=== PATIENT | female | born 1950 | race African-American/Black ===

== ENCOUNTER 2018-08-14 16:35 | Inpatient (IN) | payer OTHER ==
[2018-08-14 18:42] VITALS: BMI 23.0
--- NOTE | 2018-08-14 21:13 | HP ---
CIWA Score Nausea/Vomitin Muscle Tremors: 4-Moderate,w/Arms Extend Anxiety: 3 Agitation: 4-Moderately Restless Paroxysmal Sweats: 2 (Inreased facial moisture) Orientation: 0-Oriented Tacttile Disturbances: 0-None Auditory Disturbances: 0-None Visual Disturbances: 0-None Headache: 2-Mild CIWA-Ar Total Score: 18 - Admission Criteria OASAS Guidelines: Admission for Medically Managed Detox: Requires at least one of the followin. CIWA greater than 12 2. Seizures within the past 24 hours 3. Delirium tremens within the past 24 hours 4. Hallucinations within the past 24 hours 5. Acute intervention needed for co occurring medical disorder 6. Acute intervention needed for co occurring psychiatric disorder 7. Severe withdrawal that cannot be handled at a lower level of care (continued vomiting, continued diarrhea, abnormal vital signs) requiring intravenous medication and/or fluids 8. Patient presents the following: CIWA greater than 12 Admission Criteria Met: Admission criteria met Admission ROS S - [facility] Chief Complaint: I am having withdrawal symptoms. Allergies/Adverse Reactions: Allergies Allergy/AdvReac Type Severity Reaction Status Date / Time No Known Drug Allergies Allergy Verified 08/14/18 20:37 History of Present Illness: I'm here for detox. "I drink too much - I'm an alcoholic" Was in [facility] ER on 08/13 requesting detox, was kept overnight, and transferred to [facility]. Alcohol use began at age 15. Nicotine use began at age 15. Denies other drugs. Hx: blackouts - last 1 week ago. Denies seizures. Hx: 20 years sobriety w/o alcohol and cigarette use - which ended 3 years ago. PMHx: HTN, states takes Lasix PRN for swelling of legs. (L) THR, Liver and pancreas problems - on use, (L) knee pain - uses cane COPD - no recent exacerbation - uses albuterol ? on XARELTO - To call pharmacy for verification. (Unsure why on this medication , which she states was started a couple of days ago. MHHx: Occ depression - denies thoughts of harming self or others. No MH meds. Search Terms: Suzanne Atkins, 1950 Search Date: 08/14/2018 09:12:26 PM The Drug Utilization Report below displays all of the controlled substance prescriptions, if any, that your patient has filled in the last twelve months. The information displayed on this report is compiled from pharmacy submissions to the Department, and accurately reflects the information as submitted by the pharmacies. This report was requested by: Prabha Fonseca | Reference #: [id number] There are no results for the search terms that you entered. Exam Limitations: No Limitations - Ebola screening Have you traveled outside of the country in the last 21 days: No Have you had contact with anyone from an Ebola affected area: No Have you been sick,other than usual withdrawal symptoms: No Do you have a fever: No - Review of Systems Constitutional: Changes in sleep (Difficulty staying asleep) EENT: reports: Blurred Vision, Dental Problems (Missing teeth. Denies pain. Chews and swallows ok.) Respiratory: reports: No Symptoms reported (Past COPD - no recent exacerbation) Cardiac: reports: No Symptoms Reported GI: reports: Diarrhea, Nausea, Indigestion (Acid reflux - takes maalox or TUMS) : reports: No Symptoms Reported Musculoskeletal: reports: Joint Pain ((L) knee "4" - achy increases w/ walking; improves w/ rest) Integumentary: reports: No Symptoms Reported Neuro: reports: Headache, Tremors Endocrine: reports: Excessive Sweating, Increased Thirst (Especially in am) Hematology: reports: No Symptoms Reported Psychiatric: reports: Judgement Intact, Orientated x3, Anxious, Depressed ( Denies thoughts of harming self or others) Patient History - Patient Medical History Hx Asthma: No Hx Chronic Obstructive Pulmonary Disease (COPD): No Hx Cardiac Disorders: No Hx Hypertension: Yes (BP: 187/91) Hx Seizures: No Hx Diabetes: No Hx Gastrointestinal Disorders: No Hx Genitourinary Disorders: No Hx Sexually Transmitted Disorders: No Hx Renal Disease (ESRD): No Hx Depression: No Hx Suicide Attempt: No Hx Schizophrenia: No - Patient Surgical History Past Surgical History: Yes Hx Neurologic Surgery: No Hx Cataract Extraction: No Hx Cardiac Surgery: No Hx Lung Surgery: No Hx Breast Surgery: No Hx Breast Biopsy: No Hx Abdominal Surgery: No Hx Appendectomy: No Hx Cholecystectomy: No Hx Genitourinary Surgery: No Hx Section: No Hx Orthopedic Surgery: Yes (L Hip Replacement 2012) - PPD History Previous Implant?: Yes Documented Results: Negative w/o proof Implanted On Prior R Admission?: No PPD to be Administered?: Yes - Reproductive History Patient : No - Smoking Cessation Smoking history: Current every day smoker Have you smoked in the past 12 months: Yes Aproximately how many cigarettes per day: 10 Hx Chewing Tobacco Use: No Initiated information on smoking cessation: Yes 'Breaking Loose' booklet given: 08/14/18 - Substance & Tx. History Hx Alcohol Use: Yes Hx Substance Use: Yes Substance Use Type: Alcohol Hx Substance Use Treatment: Yes (detox, rehabs ) - Substances Abused Alcohol Route: Oral Frequency: Daily Amount used: Vodka- 1 pint Age of first use: 15 Date of Last Use: 08/13/18 Admission Physical Exam BHS - Vital Signs Vital Signs: Vital Signs - 24 hr 08/14/18 18:41 Temperature 98.9 F Pulse Rate 79 Respiratory 18 Rate Blood Pressure 187/91 H - Physical General Appearance: Yes: Nourished, Mild Distress, Tremorous, Sweating, Anxious HEENTM: Yes: EOMI, Hearing grossly Normal, Normocephalic, MAHAD, Pharynx Normal Respiratory: Yes: Chest Non-Tender, Lungs Clear, Normal Breath Sounds, No Respiratory Distress Neck: Yes: No masses,lesions,Nodules, Supple Breast: Yes: Breast Exam Deferred Cardiology: Yes: Regular Rhythm, Regular Rate, S1, S2, Murmur Abdominal: Yes: Soft, Increased Bowel Sounds, Tenderness (LUQ tenderness upon deep palpation. NO guarding. No rebound.) Genitourinary: Yes: Within Normal Limits Back: Yes: Normal Inspection Musculoskeletal: Yes: full range of Motion, Gait Steady (w/ use of cane), Other (Crepitis both knees w/o increased warmth, swelling, tenderness.) Extremities: Yes: Normal Capillary Refill, Normal Range of Motion, Tremors ( Increased tremors of hands upon extension) Neurological: Yes: simplex operator II-XII NML intact, Fully Oriented, Alert, Motor Strength 5/5, Normal Mood/Affect Integumentary: Yes: Normal Color, Dry, Warm Lymphatic: Yes: Within Normal Limits - Diagnostic (1) Alcohol dependence with uncomplicated withdrawal Current Visit: Yes Status: Acute (2) Nicotine dependence, uncomplicated Current Visit: Yes Status: Chronic Qualifiers: Nicotine product type: cigarettes Qualified Code(s): F17.210 - Nicotine dependence, cigarettes, uncomplicated (3) Essential (primary) hypertension Current Visit: Yes Status: Chronic (4) History of COPD Current Visit: Yes Status: Chronic (5) History of total left hip replacement Current Visit: Yes Status: Chronic (6) Knee pain Current Visit: Yes Status: Chronic Qualifiers: Chronicity: chronic Laterality: left Qualified Code(s): M25.562 - Pain in left knee; G89.29 - Other chronic pain Cleared for Admission S - Detox or Rehab [facility] Level of Care: Medically Managed Detox Regimen/Protocol: Librium [facility] Breath Alcohol Content Breath Alcohol Content: 0 Urine Pregancy Test - Result Urine Test Results: Negative - NO Line Present Urine Drug Screen - Results Drug Screen Negative: Yes Inpatient Rehab Admission - Rehab Decision to Admit Inpatient rehab admission?: No
[2018-08-14] MEDS ORDERED: MELATONIN 5 MG TABLETS PO PRN (21:55)
[2018-08-14] MEDS ORDERED: ACETAMINOPHEN 325 MG TABLET (FP) PO PRN (21:55)
[2018-08-14] MEDS ORDERED: MAG HYDROX/AL HYDROX/SIMETH 30 ML UNIT-DOSE CUP PO PRN (21:55)
[2018-08-14] MEDS ORDERED: chlordiazePOXIDE HCL 25 MG CAPSULE PO ONE (21:55)
[2018-08-14] MEDS ORDERED: chlordiazePOXIDE HCL 25 MG CAPSULE PO PRN (21:55)
[2018-08-14] MEDS ORDERED: guaiFENesin 200 MG/10 ML 10 ML UNIT-DOSE CUPS PO PRN (21:55)
[2018-08-14] MEDS ORDERED: MAGNESIUM CITRATE 300 ML BOTTLE PO PRN (21:55)
[2018-08-14] MEDS ORDERED: NICOTINE POLACRILEX 2 MG GUM BUC PRN (21:55)
[2018-08-14] MEDS ORDERED: MENTHOL/PHENOL 1 EACH UD MM PRN (21:55)
[2018-08-14] MEDS ORDERED: MAGNESIUM HYDROX 2400MG/30ML ORAL SUSPENSION 30 ML CUP PO PRN (21:55)
[2018-08-14] MEDS ORDERED: LOPERAMIDE HCL 2 MG CAPSULE PO PRN (22:00)
[2018-08-14] MEDS ORDERED: ALBUTEROL SO4 0.083% IH SOL 2.5 MG/3 ML VIAL.NEB. NEB PRN (22:02)
[2018-08-14] MEDS ORDERED: FUROSEMIDE 20 MG TABLET (FP) PO SCH (22:15)
[2018-08-14] MEDS ORDERED: cloNIDine HCL 0.1 MG TABLET PO ONE (23:03)
[2018-08-14] MEDS: THIAMINE HCL 100 MG TABLET (FP) PO SCH (23:10)
[2018-08-14] MEDS: chlordiazePOXIDE HCL 25 MG CAPSULE PO SCH (23:10)
[2018-08-14] MEDS: ACETAMINOPHEN 325 MG TABLET (FP) PO PRN (23:10)
[2018-08-15 01:50] LABS: URINE APPEARANCE CLEAR; URINE BILIRUBIN NEGATIVE (<2.0 mg/dL); URINE COLOR YELLOW; URINE GLUCOSE (UA) NEGATIVE (NEGATIVE); URINE KETONE NEGATIVE (NEGATIVE); URINE LEUK ESTERASE NEGATIVE (NEGATIVE); URINE NITRITE NEGATIVE (NEGATIVE); URINE PROTEIN 2+ (NEGATIVE); URINE UROBILINOGEN 4.0 E.U/dl mg/dL (0.2-1.0)
[2018-08-15 02:08] LABS: EPI CELLS RARE /HPF (FEW); URINE MUCUS RARE; YEAST FEW
[2018-08-15] MEDS: chlordiazePOXIDE HCL 25 MG CAPSULE PO SCH ×5 (05:02→23:39)
[2018-08-15] MEDS: BISMUTH SUBSALICYLATE 524 MG/30 ML UD PO PRN (05:23)
[2018-08-15] MEDS ORDERED: LIPASE/PROTEASE/AMYLASE 36,000 UNIT CAPSULE PO SCH (08:00)
[2018-08-15] MEDS: NICOTINE 14 MG/24 HOURS TOPICAL PATCH TD SCH (10:12)
[2018-08-15] MEDS: PRENATAL VITAMINS W/ FOLIC ACID TABLET (FP) PO SCH (10:12)
--- NOTE | 2018-08-15 10:45 | EKG ---
Test Reason : Blood Pressure : / mmHG Vent. Rate : 071 BPM Atrial Rate : 071 BPM P-R Int : 160 ms QRS Dur : 090 ms QT Int : 434 ms P-R-T Axes : 074 072 077 degrees QTc Int : 471 ms NORMAL SINUS RHYTHM NORMAL ECG NO PREVIOUS ECGS AVAILABLE Confirmed by Shawn Yanez MD ([id number]) on 08/15/2018 10:44:43 AM Referred By: GIULIA DUMONT Confirmed By:Shawn Yanez MD
[2018-08-15 11:28] LABS: HEMATOCRIT 30.9 % (32.4-45.2); HEMOGLOBIN 10.5 GM/dL (10.7-15.3); MCHC 34.1 g/dl (32.0-36.0); MEAN CELL VOLUME 90.9 fl (80-96); MEAN PLT VOLUME 7.1 fl (7.5-11.1); PLATELET COUNT 133 K/MM3 (134-434); RBC 3.39 M/mm3 (3.60-5.2); RDW 18.2 % (11.6-15.6); WHITE BLOOD COUNT 4.1 K/mm3 (4.0-10.0)
[2018-08-15 11:35] LABS: ALBUMIN 3.5 g/dl (3.4-5.0); ALK PHOS 119 U/L (45-117); ANION GAP 7 MMOL/L (8-16); BILIRUBIN,TOTAL 0.4 mg/dL (0.2-1); BLOOD UREA NITROGEN 10 mg/dL (7-18); CALCIUM 8.6 mg/dL (8.5-10.1); CHLORIDE 102 mmol/L (98-107); CO2 31 mmol/L (21-32); CREATININE 0.8 mg/dL (0.55-1.3); GLUCOSE,RANDOM 119 mg/dL (74-106); SGOT/AST 44 U/L (15-37); SGPT/ALT 26 U/L (13-61); SODIUM 139 mmol/L (136-145); TOT PROT 6.9 g/dl (6.4-8.2)
[2018-08-15] MEDS ORDERED: ONDANSETRON *ODT* 4 MG TABLET SL ONE (12:29)
--- NOTE | 2018-08-15 12:30 | PN ---
S CIWA - CIWA Score Nausea/Vomitin-Mild Nausea/No Vomiting Muscle Tremors: 3 Anxiety: 1-Mildly Anxious Agitation: 3 Paroxysmal Sweats: 1-Minimal Palms Moist Orientation: 2-Disoriented Date<2 days Tacttile Disturbances: 0-None Auditory Disturbances: 0-None Visual Disturbances: 0-None Headache: 2-Mild CIWA-Ar Total Score: 13 BHS Progress Note (SOAP) Subjective: nausea tremor sweating zofran 4 mg sl x 1 Objective: 08/15/18 12:31 Vital Signs Temperature 97.8 F 08/15/18 09:29 Pulse Rate 68 08/15/18 09:29 Respiratory Rate 18 08/15/18 09:29 Blood Pressure 148/81 08/15/18 09:29 O2 Sat by Pulse Oximetry (%) Laboratory Last Values WBC 4.1 K/mm3 (4.0-10.0) 08/15/18 07:30 RBC 3.39 M/mm3 (3.60-5.2) L 08/15/18 07:30 Hgb 10.5 GM/dL (10.7-15.3) L 08/15/18 07:30 Hct 30.9 % (32.4-45.2) L 08/15/18 07:30 MCV 90.9 fl (80-96) 08/15/18 07:30 MCH 31.0 pg (25.7-33.7) 08/15/18 07:30 MCHC 34.1 g/dl (32.0-36.0) 08/15/18 07:30 RDW 18.2 % (11.6-15.6) H 08/15/18 07:30 Plt Count 133 K/MM3 (134-434) L 08/15/18 07:30 MPV 7.1 fl (7.5-11.1) L 08/15/18 07:30 Sodium 139 mmol/L (136-145) 08/15/18 07:30 Potassium 3.0 mmol/L (3.5-5.1) L 08/15/18 07:30 Chloride 102 mmol/L (98-107) 08/15/18 07:30 Carbon Dioxide 31 mmol/L (21-32) 08/15/18 07:30 Anion Gap 7 MMOL/L (8-16) L 08/15/18 07:30 BUN 10 mg/dL (7-18) 08/15/18 07:30 Creatinine 0.8 mg/dL (0.55-1.3) 08/15/18 07:30 Creat Clearance w eGFR 71.99 (>60) 08/15/18 07:30 Random Glucose 119 mg/dL (74-106) H 08/15/18 07:30 Calcium 8.6 mg/dL (8.5-10.1) 08/15/18 07:30 Total Bilirubin 0.4 mg/dL (0.2-1) 08/15/18 07:30 AST 44 U/L (15-37) H 08/15/18 07:30 ALT 26 U/L (13-61) 08/15/18 07:30 Alkaline Phosphatase 119 U/L (45-117) H 08/15/18 07:30 Total Protein 6.9 g/dl (6.4-8.2) 08/15/18 07:30 Albumin 3.5 g/dl (3.4-5.0) 08/15/18 07:30 Urine Color Yellow 08/14/18 23:10 Urine Appearance Clear 08/14/18 23:10 Urine pH 6.0 (5.0-8.0) 08/14/18 23:10 Ur Specific [place] 1.020 (1.010-1.035) 08/14/18 23:10 Urine Protein 2+ (NEGATIVE) H 08/14/18 23:10 Urine Glucose (UA) Negative (NEGATIVE) 08/14/18 23:10 Urine Ketones Negative (NEGATIVE) 08/14/18 23:10 Urine Blood Negative (NEGATIVE) 08/14/18 23:10 Urine Nitrite Negative (NEGATIVE) 08/14/18 23:10 Urine Bilirubin Negative (<2.0 mg/dL) 08/14/18 23:10 Urine Urobilinogen 4.0 e.u/dl mg/dL (0.2-1.0) H 08/14/18 23:10 Ur Leukocyte Esterase Negative (NEGATIVE) 08/14/18 23:10 Urine WBC (Auto) 2 /hpf (3-5) 08/14/18 23:10 Urine RBC (Auto) 2 /hpf (0-3) 08/14/18 23:10 Ur Epithelial Cells Rare /HPF (FEW) 08/14/18 23:10 Urine Mucus Rare 08/14/18 23:10 Urine Yeast Few 08/14/18 23:10 lab noted taking lasix 08/15/18 12:34 low K+ Assessment: 08/15/18 12:34 alcohol withdrawal sx 08/15/18 12:34 hypokalemia Plan: continue detox K+ supplement
[2018-08-15] MEDS ORDERED: ALBUTEROL SO4 8 GM HFA INHALER IH PRN (12:37)
[2018-08-15] MEDS: FUROSEMIDE 20 MG TABLET (FP) PO SCH (12:43)
[2018-08-15] MEDS: RANITIDINE HCL 150 MG TABLET (FP) PO SCH ×2 (12:43→23:08)
[2018-08-15] MEDS ORDERED: RIVAROXABAN 20 MG TABLET PO SCH ×2 (12:45)
[2018-08-15] MEDS ORDERED: GABAPENTIN 100 MG CAPSULE (FP) PO SCH (12:45)
[2018-08-15] MEDS: POTASSIUM CHLORIDE ORAL LIQUID 20 MEQ/15 ML PO SCH ×2 (14:09→18:34)
[2018-08-15] MEDS: GABAPENTIN 100 MG CAPSULE (FP) PO SCH ×3 (14:09→23:43)
[2018-08-15] MEDS ORDERED: TRIMETHOBENZAMIDE HCL 200MG/2ML INJ IM ONE ×2 (17:02→21:47)
--- NOTE | 2018-08-15 17:03 | PN ---
[facility] Progress Note Note: Vital Signs Temperature 98.6 F 08/15/18 13:48 Pulse Rate 66 08/15/18 13:48 Respiratory Rate 18 08/15/18 13:48 Blood Pressure 159/80 08/15/18 13:48 O2 Sat by Pulse Oximetry (%) nausea and vomiting with no relief with zofran one time dose of tigan IM fluids as tolerated continue to monitor
[2018-08-15] MEDS: RIVAROXABAN 20 MG TABLET PO SCH (18:31)
[2018-08-15] MEDS: LIPASE/PROTEASE/AMYLASE 36,000 UNIT CAPSULE PO SCH (18:33)
[2018-08-15] MEDS: ACETAMINOPHEN 325 MG TABLET (FP) PO PRN ×2 (18:40→21:15)
[2018-08-15] MEDS ORDERED: hydrOXYzine PAMOATE 25 MG CAPSULE (FP) PO PRN ×2 (21:44→21:50)
[2018-08-15] MEDS ORDERED: KETOROLAC TROMETHAMINE 30 MG/1 ML VIAL IM ONE (21:48)
[2018-08-15] MEDS: THIAMINE HCL 100 MG TABLET (FP) PO SCH ×2 (23:08→23:43)
[2018-08-16] MEDS: chlordiazePOXIDE HCL 25 MG CAPSULE PO SCH ×3 (06:03→17:42)
[2018-08-16] MEDS: GABAPENTIN 100 MG CAPSULE (FP) PO SCH ×3 (06:03→22:49)
[2018-08-16] MEDS: LIPASE/PROTEASE/AMYLASE 36,000 UNIT CAPSULE PO SCH ×4 (07:31→18:27)
[2018-08-16] MEDS: RANITIDINE HCL 150 MG TABLET (FP) PO SCH ×2 (11:01→22:49)
[2018-08-16] MEDS: NICOTINE 14 MG/24 HOURS TOPICAL PATCH TD SCH (11:01)
[2018-08-16] MEDS: FUROSEMIDE 20 MG TABLET (FP) PO SCH (11:02)
[2018-08-16] MEDS: PRENATAL VITAMINS W/ FOLIC ACID TABLET (FP) PO SCH (11:02)
[2018-08-16] MEDS: POTASSIUM CHLORIDE ORAL LIQUID 20 MEQ/15 ML PO SCH ×3 (15:03→22:49)
[2018-08-16] MEDS ORDERED: LISINOPRIL 20 MG TABLET (FP) PO ONE (15:04)
[2018-08-16] MEDS: DICYCLOMINE HCL 10 MG CAPSULE PO PRN (15:07)
--- NOTE | 2018-08-16 15:32 | PN ---
S CIWA - CIWA Score Nausea/Vomitin Muscle Tremors: 2 Anxiety: 2 Agitation: 1-Slight > Activity Paroxysmal Sweats: 1-Minimal Palms Moist Orientation: 0-Oriented Tacttile Disturbances: 0-None Auditory Disturbances: 0-None Visual Disturbances: 0-None Headache: 1-Very Mild CIWA-Ar Total Score: 9 BHS Progress Note (SOAP) Subjective: pt states she is having a lot of nausea and unable to keep food in stomach and also c/o no appetite, requesting Boost. pt also c/o pain- requesting IM toradol which she received yesterday Called [facility]. Pt is on these meds: Folic acid, furosemide 20mg (pt stated takes it prn at intake), xarelto (not clear why on this), pantaprazole, and Ventolin. Pt noted to have high BP today SBP 180, no outpt meds per [facility] records - only on lasix. Vital Signs - 24 hr 08/15/18 08/15/18 08/16/18 17:29 21:53 03:30 Temperature 98.4 F 98.3 F Pulse Rate 76 78 Respiratory 18 18 18 Rate Blood Pressure 184/91 H 168/84 08/16/18 08/16/18 08/16/18 06:59 10:33 14:26 Temperature 98.0 F 98.6 F 97.7 F Pulse Rate 92 H 70 86 Respiratory 18 18 16 Rate Blood Pressure 141/90 138/86 182/98 H Laboratory Tests 08/14/18 08/15/18 08/15/18 23:10 07:30 07:30 WBC 4.1 RBC 3.39 L Hgb 10.5 L Hct 30.9 L MCV 90.9 MCH 31.0 MCHC 34.1 RDW 18.2 H Plt Count 133 L MPV 7.1 L Sodium 139 Potassium 3.0 L Chloride 102 Carbon Dioxide 31 Anion Gap 7 L BUN 10 Creatinine 0.8 Creat Clearance w eGFR 71.99 Random Glucose 119 H Calcium 8.6 Total Bilirubin 0.4 AST 44 H ALT 26 Alkaline Phosphatase 119 H Total Protein 6.9 Albumin 3.5 Urine Color Yellow Urine Appearance Clear Urine pH 6.0 Ur Specific [place] 1.020 Urine Protein 2+ H Urine Glucose (UA) Negative Urine Ketones Negative Urine Blood Negative Urine Nitrite Negative Urine Bilirubin Negative Urine Urobilinogen 4.0 e.u/dl H Ur Leukocyte Esterase Negative Urine WBC (Auto) 2 Urine RBC (Auto) 2 Ur Epithelial Cells Rare Urine Mucus Rare Urine Yeast Few RPR Titer 08/15/18 08/16/18 07:30 07:45 WBC RBC Hgb Hct MCV MCH MCHC RDW Plt Count MPV Sodium Potassium 2.9 L* Chloride Carbon Dioxide Anion Gap BUN Creatinine Creat Clearance w eGFR Random Glucose Calcium Total Bilirubin AST ALT Alkaline Phosphatase Total Protein Albumin Urine Color Urine Appearance Urine pH Ur Specific [place] Urine Protein Urine Glucose (UA) Urine Ketones Urine Blood Urine Nitrite Urine Bilirubin Urine Urobilinogen Ur Leukocyte Esterase Urine WBC (Auto) Urine RBC (Auto) Ur Epithelial Cells Urine Mucus Urine Yeast RPR Titer Nonreactive low K today in spite of 80 meq of k yesterday a/p continue alcohol detox protocol Boost ordered Lasix stopped b/c of low K, KCl increased to 40meq TID and added Mag to help K absorption Lisinopril 40mg stat for high BP and continue at 20 mg /day. Add norvasc if with increased BP. a dose of toradol for pain- d/w pt not an ideal med for pain, zofran for nausea Not sure why pt on xarelto- called pharmacy and confirmed that pt was ordered this
[2018-08-16] MEDS ORDERED: KETOROLAC TROMETHAMINE 30 MG/1 ML VIAL IM ONE (16:00)
[2018-08-16] MEDS: RIVAROXABAN 20 MG TABLET PO SCH (17:43)
[2018-08-16] MEDS: chlordiazePOXIDE HCL 10 MG CAPSULE PO SCH (22:49)
[2018-08-16] MEDS: THIAMINE HCL 100 MG TABLET (FP) PO SCH (22:49)
[2018-08-16] MEDS: MAGNESIUM OXIDE 400 MG TABLET (FP) PO SCH (22:49)
[2018-08-16] MEDS: BISMUTH SUBSALICYLATE 524 MG/30 ML UD PO PRN (22:57)
[2018-08-16] MEDS ORDERED: chlordiazePOXIDE HCL 10 MG CAPSULE PO PRN (23:00)
[2018-08-17] MEDS: GABAPENTIN 100 MG CAPSULE (FP) PO SCH ×3 (05:49→23:05)
[2018-08-17] MEDS: chlordiazePOXIDE HCL 10 MG CAPSULE PO SCH ×3 (05:49→16:43)
[2018-08-17] MEDS: ACETAMINOPHEN 325 MG TABLET (FP) PO PRN (05:52)
[2018-08-17] MEDS ORDERED: cloNIDine HCL 0.1 MG TABLET PO ONE (06:09)
--- NOTE | 2018-08-17 06:13 | PN ---
[facility] Progress Note Note: Patient's blood pressure is B/P 177/105. Patent is asymptomatic Vital Signs 08/17/18 08/17/18 08/17/18 00:30 03:30 06:00 Temperature 97 F L Pulse Rate 71 Respiratory 18 18 18 Rate Blood Pressure 176/105 H 08/17/18 06:01 Temperature Pulse Rate 91 H Respiratory Rate Blood Pressure 177/97 H Action: Clonidine 0.1mg tablet 1 tablet oral ordered
[2018-08-17] MEDS: LIPASE/PROTEASE/AMYLASE 36,000 UNIT CAPSULE PO SCH ×3 (09:20→16:42)
[2018-08-17] MEDS ORDERED: cloNIDine HCL 0.1 MG TABLET PO PRN (10:11)
--- NOTE | 2018-08-17 10:23 | PN ---
S CIWA - CIWA Score Nausea/Vomitin-No Nausea/No Vomiting Muscle Tremors: 2 Anxiety: 1-Mildly Anxious Agitation: 1-Slight > Activity Paroxysmal Sweats: 1-Minimal Palms Moist Orientation: 1-Uncertain about Date Tacttile Disturbances: 0-None Auditory Disturbances: 0-None Visual Disturbances: 0-None Headache: 1-Very Mild CIWA-Ar Total Score: 7 S Progress Note (SOAP) Subjective: feeling better elevated bp patient can not recall the name of the medication leader writer called pharmacy [phone] that xarelto ventolin protonax and lasix are ready to be picker on 08/14/[address] Hunter [phone] spoke with the nurse that no record of antihypertansive medication begin lisinopril and clonidine 0.2 mg prn as well as amilodopin Objective: 08/17/18 10:26 Vital Signs Temperature 97.2 F L 08/17/18 09:31 Pulse Rate 83 08/17/18 09:31 Respiratory Rate 18 08/17/18 09:31 Blood Pressure 112/77 08/17/18 09:31 O2 Sat by Pulse Oximetry (%) Laboratory Last Values WBC 4.1 K/mm3 (4.0-10.0) 08/15/18 07:30 RBC 3.39 M/mm3 (3.60-5.2) L 08/15/18 07:30 Hgb 10.5 GM/dL (10.7-15.3) L 08/15/18 07:30 Hct 30.9 % (32.4-45.2) L 08/15/18 07:30 MCV 90.9 fl (80-96) 08/15/18 07:30 MCH 31.0 pg (25.7-33.7) 08/15/18 07:30 MCHC 34.1 g/dl (32.0-36.0) 08/15/18 07:30 RDW 18.2 % (11.6-15.6) H 08/15/18 07:30 Plt Count 133 K/MM3 (134-434) L 08/15/18 07:30 MPV 7.1 fl (7.5-11.1) L 08/15/18 07:30 Sodium 139 mmol/L (136-145) 08/15/18 07:30 Potassium 2.9 mmol/L (3.5-5.1) L* 08/16/18 07:45 Chloride 102 mmol/L (98-107) 08/15/18 07:30 Carbon Dioxide 31 mmol/L (21-32) 08/15/18 07:30 Anion Gap 7 MMOL/L (8-16) L 08/15/18 07:30 BUN 10 mg/dL (7-18) 08/15/18 07:30 Creatinine 0.8 mg/dL (0.55-1.3) 08/15/18 07:30 Creat Clearance w eGFR 71.99 (>60) 08/15/18 07:30 Random Glucose 119 mg/dL (74-106) H 08/15/18 07:30 Calcium 8.6 mg/dL (8.5-10.1) 08/15/18 07:30 Total Bilirubin 0.4 mg/dL (0.2-1) 08/15/18 07:30 AST 44 U/L (15-37) H 08/15/18 07:30 ALT 26 U/L (13-61) 08/15/18 07:30 Alkaline Phosphatase 119 U/L (45-117) H 08/15/18 07:30 Total Protein 6.9 g/dl (6.4-8.2) 08/15/18 07:30 Albumin 3.5 g/dl (3.4-5.0) 08/15/18 07:30 Urine Color Yellow 08/14/18 23:10 Urine Appearance Clear 08/14/18 23:10 Urine pH 6.0 (5.0-8.0) 08/14/18 23:10 Ur Specific [place] 1.020 (1.010-1.035) 08/14/18 23:10 Urine Protein 2+ (NEGATIVE) H 08/14/18 23:10 Urine Glucose (UA) Negative (NEGATIVE) 08/14/18 23:10 Urine Ketones Negative (NEGATIVE) 08/14/18 23:10 Urine Blood Negative (NEGATIVE) 08/14/18 23:10 Urine Nitrite Negative (NEGATIVE) 08/14/18 23:10 Urine Bilirubin Negative (<2.0 mg/dL) 08/14/18 23:10 Urine Urobilinogen 4.0 e.u/dl mg/dL (0.2-1.0) H 08/14/18 23:10 Ur Leukocyte Esterase Negative (NEGATIVE) 08/14/18 23:10 Urine WBC (Auto) 2 /hpf (3-5) 08/14/18 23:10 Urine RBC (Auto) 2 /hpf (0-3) 08/14/18 23:10 Ur Epithelial Cells Rare /HPF (FEW) 08/14/18 23:10 Urine Mucus Rare 08/14/18 23:10 Urine Yeast Few 08/14/18 23:10 RPR Titer Nonreactive (NONREACTIVE) 08/15/18 07:30 lab noted Assessment: 08/17/18 10:27 mild withdrawal sx 08/17/18 10:27 hypertension Plan: continue detox lisinopril clonidine and amilodopin rpeat K+
[2018-08-17] MEDS: LISINOPRIL 20 MG TABLET (FP) PO SCH (10:30)
[2018-08-17] MEDS ORDERED: amLODIPine BESYLATE 10 MG TABLET (FP) PO SCH (10:30)
[2018-08-17] MEDS: RANITIDINE HCL 150 MG TABLET (FP) PO SCH (10:31)
[2018-08-17] MEDS: PRENATAL VITAMINS W/ FOLIC ACID TABLET (FP) PO SCH (10:31)
[2018-08-17] MEDS: MAGNESIUM OXIDE 400 MG TABLET (FP) PO SCH ×2 (10:31→23:05)
[2018-08-17] MEDS: PANTOPRAZOLE 40 MG TABLET (FP) PO SCH (10:32)
[2018-08-17] MEDS: NICOTINE 14 MG/24 HOURS TOPICAL PATCH TD SCH (10:35)
[2018-08-17] MEDS: amLODIPine BESYLATE 10 MG TABLET (FP) PO SCH (11:36)
[2018-08-17] MEDS: POTASSIUM CHLORIDE ORAL LIQUID 20 MEQ/15 ML PO SCH ×3 (14:46→23:05)
[2018-08-17] MEDS: RIVAROXABAN 20 MG TABLET PO SCH (16:44)
[2018-08-17] MEDS: DICYCLOMINE HCL 10 MG CAPSULE PO PRN (16:51)
--- NOTE | 2018-08-17 22:48 | PN ---
[facility] Progress Note Note: Patient reports that she fell in her room. Fall was unwitnessed. Fall protocol # 1 initiated. Patient refused assessment and EKG. She was belligerent and very loud, demanding to be sent to [facility]. Patient informed that she is to evaluated at [facility]. Vital Signs Temperature 97.1 F L 08/17/18 22:16 Pulse Rate 92 H 08/17/18 22:16 Respiratory Rate 18 08/17/18 22:16 Blood Pressure 181/100 H 08/17/18 22:16 O2 Sat by Pulse Oximetry (%) Laboratory Last Values WBC 4.1 K/mm3 (4.0-10.0) 08/15/18 07:30 RBC 3.39 M/mm3 (3.60-5.2) L 08/15/18 07:30 Hgb 10.5 GM/dL (10.7-15.3) L 08/15/18 07:30 Hct 30.9 % (32.4-45.2) L 08/15/18 07:30 MCV 90.9 fl (80-96) 08/15/18 07:30 MCH 31.0 pg (25.7-33.7) 08/15/18 07:30 MCHC 34.1 g/dl (32.0-36.0) 08/15/18 07:30 RDW 18.2 % (11.6-15.6) H 08/15/18 07:30 Plt Count 133 K/MM3 (134-434) L 08/15/18 07:30 MPV 7.1 fl (7.5-11.1) L 08/15/18 07:30 Sodium 139 mmol/L (136-145) 08/15/18 07:30 Potassium 2.9 mmol/L (3.5-5.1) L* 08/16/18 07:45 Chloride 102 mmol/L (98-107) 08/15/18 07:30 Carbon Dioxide 31 mmol/L (21-32) 08/15/18 07:30 Anion Gap 7 MMOL/L (8-16) L 08/15/18 07:30 BUN 10 mg/dL (7-18) 08/15/18 07:30 Creatinine 0.8 mg/dL (0.55-1.3) 08/15/18 07:30 Creat Clearance w eGFR 71.99 (>60) 08/15/18 07:30 Random Glucose 119 mg/dL (74-106) H 08/15/18 07:30 Calcium 8.6 mg/dL (8.5-10.1) 08/15/18 07:30 Total Bilirubin 0.4 mg/dL (0.2-1) 08/15/18 07:30 AST 44 U/L (15-37) H 08/15/18 07:30 ALT 26 U/L (13-61) 08/15/18 07:30 Alkaline Phosphatase 119 U/L (45-117) H 08/15/18 07:30 Total Protein 6.9 g/dl (6.4-8.2) 08/15/18 07:30 Albumin 3.5 g/dl (3.4-5.0) 08/15/18 07:30 Urine Color Yellow 08/14/18 23:10 Urine Appearance Clear 08/14/18 23:10 Urine pH 6.0 (5.0-8.0) 08/14/18 23:10 Ur Specific [place] 1.020 (1.010-1.035) 08/14/18 23:10 Urine Protein 2+ (NEGATIVE) H 08/14/18 23:10 Urine Glucose (UA) Negative (NEGATIVE) 08/14/18 23:10 Urine Ketones Negative (NEGATIVE) 08/14/18 23:10 Urine Blood Negative (NEGATIVE) 08/14/18 23:10 Urine Nitrite Negative (NEGATIVE) 08/14/18 23:10 Urine Bilirubin Negative (<2.0 mg/dL) 08/14/18 23:10 Urine Urobilinogen 4.0 e.u/dl mg/dL (0.2-1.0) H 08/14/18 23:10 Ur Leukocyte Esterase Negative (NEGATIVE) 08/14/18 23:10 Urine WBC (Auto) 2 /hpf (3-5) 08/14/18 23:10 Urine RBC (Auto) 2 /hpf (0-3) 08/14/18 23:10 Ur Epithelial Cells Rare /HPF (FEW) 08/14/18 23:10 Urine Mucus Rare 08/14/18 23:10 Urine Yeast Few 08/14/18 23:10 RPR Titer Nonreactive (NONREACTIVE) 08/15/18 07:30 Action: Endorsed to Dr. Lundy Awaiting for transportation to ER
[2018-08-17] MEDS ORDERED: chlordiazePOXIDE HCL 10 MG CAPSULE PO SCH (23:00)
[2018-08-17] MEDS: THIAMINE HCL 100 MG TABLET (FP) PO SCH (23:06)
[2018-08-18] MEDS: GABAPENTIN 100 MG CAPSULE (FP) PO SCH (07:44)
[2018-08-18] MEDS: LIPASE/PROTEASE/AMYLASE 36,000 UNIT CAPSULE PO SCH (08:54)
[2018-08-18] MEDS: amLODIPine BESYLATE 10 MG TABLET (FP) PO SCH (10:08)
[2018-08-18] MEDS: LISINOPRIL 20 MG TABLET (FP) PO SCH (10:08)
[2018-08-18] MEDS: PANTOPRAZOLE 40 MG TABLET (FP) PO SCH (10:08)
[2018-08-18] MEDS: MAGNESIUM OXIDE 400 MG TABLET (FP) PO SCH (10:08)
[2018-08-18] MEDS: PRENATAL VITAMINS W/ FOLIC ACID TABLET (FP) PO SCH (10:08)
[2018-08-18] MEDS: NICOTINE 14 MG/24 HOURS TOPICAL PATCH TD SCH (10:08)
[2018-08-18 10:23] VITALS: BP 130/83; PULSE 80; TEMP 97
--- NOTE | 2018-08-18 13:16 | DS ---
[facility] Detox Discharge Summary Admission Date: 08/14/18 Discharge Date: 08/18/18 - History Present History: Alcohol Dependence Pertinent Past History: pt admitted with alcohol use disorder- detox protocol completed. Pt to go home. h/o DVT- f/u PCP h/o HTN was on lasix- discontinued b/c of low K, used lisinopril and norvasc for BP- pt f/u with PCP in 2 days- BP and K f/u- pt understood - Physical Exam Results Vital Signs: Vital Signs Temperature 97.0 F L 08/18/18 10:10 Pulse Rate 80 08/18/18 10:10 Respiratory Rate 18 08/18/18 10:10 Blood Pressure 130/83 08/18/18 10:10 O2 Sat by Pulse Oximetry (%) - Treatment Hospital Course: Detox Protocol Followed, Detoxed Safely, Responded well, Discharged Condition Good - Medication Discharge Medications: Ambulatory Orders Furosemide [Lasix] 20 mg PO PRN 08/14/18 Lipase/Protease/Amylase [Creon Dr 36,000 Units Capsule] 1 each PO BID 08/14/18 Albuterol Sulfate Inhaler - [Ventolin HFA Inhaler -] 2 inh PO Q4H 08/15/18 Gabapentin [Neurontin -] 100 mg PO Q8H 08/15/18 Rivaroxaban [Xarelto -] 20 mg PO DAILY 08/15/18 Amlodipine Besylate [Norvasc -] 10 mg PO DAILY 08/17/18 Lisinopril 20 mg PO DAILY 08/17/18 Pantoprazole Sodium [Protonix -] 40 mg PO DAILY 08/17/18 - Diagnosis (1) Hypokalemia Status: Acute (2) Hypokalemia due to loss of potassium Status: Acute - AMA Did Patient Leave Against Medical Advice: No
== END 2018-08-18 11:50 | disposition home or self-care (01) | DRG 897 ==
LOC: YASAS 16:35 → Y3N 22:09
PROVIDERS: ADMIT Surgery; ATTEND Surgery
PROC: HZ2ZZZZ Detoxification Services for Substance Abuse Treatment (ICD-10-PCS; principal; 2018-08-14)
DX: F10.230 Alcohol dependence with withdrawal, uncomplicated (principal); F17.210 Nicotine dependence, cigarettes, uncomplicated; I10 Essential (primary) hypertension; E87.6 Hypokalemia; M25.562 Pain in left knee; Z99.89 Dependence on other enabling machines and devices; Z96.641 Presence of right artificial hip joint; Z86.718 Personal history of other venous thrombosis and embolism; Z79.01 Long term (current) use of anticoagulants; Z87.09 Personal history of other diseases of the respiratory system
CPT/HCPCS: 36415; 80053; 81003; 81015; 84132; 85027; 86593; 93005; 93010; J0735; Q0162

== ENCOUNTER 2019-11-21 15:15 | Inpatient (IN) | payer OTHER ==
--- NOTE | 2019-11-21 17:40 | BHS.RME ---
Substance Use & Tx History - Substance Use History Alcohol Substance amount: " I don't know " - Last Treatment Where was last treatment: Detox Physical/Psych/Mental Status - Behavior Eye Contact: Normal - Cooperativeness Cooperativeness: Cooperative - Thinking Thought Processes: Logical - Physical Health Problems Is patient presently having any pain?: No Does patient presently have any injuries (include location): No Does patient currently have a fever: No
--- NOTE | 2019-11-21 17:46 | HP ---
CIWA Score - Admission Criteria OASAS Guidelines: Admission for Medically Managed Detox: Requires at least one of the followin. CIWA greater than 12 2. Seizures within the past 24 hours 3. Delirium tremens within the past 24 hours 4. Hallucinations within the past 24 hours 5. Acute intervention needed for co occurring medical disorder 6. Acute intervention needed for co occurring psychiatric disorder 7. Severe withdrawal that cannot be handled at a lower level of care (continued vomiting, continued diarrhea, abnormal vital signs) requiring intravenous medication and/or fluids 8. Admitting History and Physical - Smoking History Smoking history: Current every day smoker Have you smoked in the past 12 months: Yes Aproximately how many cigarettes per day: 20 - Alcohol/Substance Use Hx Alcohol Use: Yes Admission ROS S - HPI Allergies/Adverse Reactions: Allergies Allergy/AdvReac Type Severity Reaction Status Date / Time No Known Drug Allergies Allergy Verified 08/14/18 20:37 History of Present Illness: 68 y.o female requesting rehab for alcohol use AMOUNT REPORTED ": i DON'T KNOW, MA'M " , s/p hospitalization @ 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 FROM [facility] [place] [facility] " IT'S ALL THERE ,I DON'T KNOW " PMHx: HTN on Lisinopril , (L) THR,PANCREATITIS W/ PSEUDOCYST , (L) knee pain - uses cane , COPD , HEP c CIRRHOSIS S/P HARVONI , DVT NO LONGER ON AC pshX ; ABOVE PSYCH HX : INSOMNIA TOBACCO " i DON'T KNOW " Exam Limitations: Clinical Condition - Review of Systems Constitutional: No Symptoms Reported EENT: reports: Other (GLASSES ,) Respiratory: reports: Cough Cardiac: reports: No Symptoms Reported GI: reports: Vomiting (TODAY AFTER TAKING MORPHINE PILL) : reports: No Symptoms Reported Musculoskeletal: reports: Joint Pain Integumentary: reports: No Symptoms Reported Neuro: reports: No Symptoms reported Endocrine: reports: No Symptoms Reported Hematology: reports: Blood Clots (PER HOSPITAL D/C , PT DENIES) Psychiatric: reports: Orientated x3, Agitated, Anxious Patient History - Patient Medical History Hx Anemia: No Hx Asthma: No Hx Chronic Obstructive Pulmonary Disease (COPD): Yes (Albuterol) Hx Cancer: No Hx Cardiac Disorders: No Hx Congestive Heart Failure: No Hx Hypertension: Yes (Amlodipine, Lisinopril) Hx Hypercholesterolemia: No HX Cerebrovascular Accident: No Hx Seizures: No Hx Diabetes: No Hx Gastrointestinal Disorders: Yes (GERD, Pancreatitis) Hx Liver Disease: Yes (Cirrhosis of liver) Hx Genitourinary Disorders: No Hx Sexually Transmitted Disorders: No Hx Renal Disease (ESRD): No Hx Thyroid Disease: No Hx Human Immunodeficiency Virus (HIV): No (Negative 15 years ago) Hx Hepatitis C: No Hx Depression: No Hx Suicide Attempt: No (Denies suicidal ideation at this time) Hx Bipolar Disorder: No Hx Schizophrenia: No - Patient Surgical History Past Surgical History: Yes Hx Neurologic Surgery: No Hx Cataract Extraction: No Hx Cardiac Surgery: No Hx Lung Surgery: No Hx Breast Surgery: No Hx Breast Biopsy: No Hx Abdominal Surgery: No Hx Appendectomy: No Hx Cholecystectomy: No Hx Genitourinary Surgery: No Hx Section: No Hx Orthopedic Surgery: Yes (L Hip Replacement 2012) Hx Hysterectomy: No Anesthesia Reaction: No - PPD History Date: 08/16/18 - Smoking Cessation Smoking history: Current every day smoker Have you smoked in the past 12 months: Yes Aproximately how many cigarettes per day: 20 Hx Chewing Tobacco Use: No Initiated information on smoking cessation: Yes 'Breaking Loose' booklet given: 11/21/19 Admission Physical Exam BHS - Physical General Appearance: Yes: Mild Distress, Irritable HEENTM: Yes: EOMI, Hearing grossly Normal, Normocephalic, Normal Voice Respiratory: Yes: Chest Non-Tender, Lungs Clear, Normal Breath Sounds, No Respiratory Distress, No Accessory Muscle Use Neck: Yes: No masses,lesions,Nodules, Trachea in good position Cardiology: Yes: Regular Rhythm, Regular Rate, S1, S2 Abdominal: Yes: Soft, Tenderness (diffuse RUQ ( chronic )) Musculoskeletal: Yes: Gait Steady Extremities: Yes: Normal Range of Motion, Non-Tender Neurological: Yes: Fully Oriented, Alert, Motor Strength 5/5, Depressed Affect Integumentary: Yes: Warm - Diagnostic (1) Alcohol dependence Current Visit: Yes Status: Chronic Qualifiers: Substance use status: in remission Qualified Code(s): F10.21 - Alcohol dependence, in remission Breathalyzer - Breathalyzer Breathalyzer: 0 Urine Drug Screen - Test Device Lot number: [id number] Expiration date: 01/27/21 - Control Is test valid?: Yes - Results Drug screen NEGATIVE: No Urine drug screen results: MOP-Opiates, BZO-Benzodiazepines Inpatient Rehab Admission - Rehab Decision to Admit Inpatient rehab admission?: Yes - Initial Determination Are CD services needed?: Yes Free of communicable disease: Yes Not in need of hospitalization: Yes - Rehab Admission Criteria Previous failed treatment: No Poor recovery environment: Yes Comorbidities: Yes Lacks judgement: Yes Patient is meeting Inpatient Rehab admission criteria:: Yes
[2019-11-21] MEDS ORDERED: ALBUTEROL SO4 HFA INHALER IH PRN (18:00)
[2019-11-21] MEDS ORDERED: P-EPHED 60MG/TRIPROLIDI 2.5MG TABLET PO PRN (19:06)
[2019-11-21] MEDS ORDERED: LOPERAMIDE HCL 2 MG CAPSULE PO PRN (19:06)
[2019-11-21] MEDS ORDERED: ACETAMINOPHEN 325 MG TABLET (FP) PO PRN (19:06)
[2019-11-21] MEDS ORDERED: NICOTINE POLACRILEX 2 MG GUM BC PRN (19:06)
[2019-11-21] MEDS ORDERED: MAGNESIUM CITRATE 300 ML BOTTLE PO PRN (19:06)
[2019-11-21] MEDS ORDERED: MAGNESIUM HYDROX 2400MG/30ML ORAL SUSPENSION 30 ML CUP PO PRN (19:06)
[2019-11-21 20:02] VITALS: BMI 21.5
[2019-11-21] MEDS: MELATONIN 5 MG TABLETS PO PRN (21:14)
[2019-11-21] MEDS: THIAMINE HCL 100 MG TABLET (FP) PO SCH (21:14)
[2019-11-21] MEDS: PANTOPRAZOLE 40 MG TABLET PO SCH (21:14)
[2019-11-21] MEDS: LIPASE/PROTEASE/AMYLASE 36,000 UNIT CAPSULE PO SCH (21:15)
[2019-11-21] MEDS: MAG HYDROX/AL HYDROX/SIMETH 30 ML UNIT-DOSE CUP PO PRN (21:45)
[2019-11-22] MEDS: LIPASE/PROTEASE/AMYLASE 36,000 UNIT CAPSULE PO SCH ×3 (06:42→21:40)
--- NOTE | 2019-11-22 08:31 | PN ---
[facility] Progress Note Note: patient admitted to [facility]. Documents, notes, labs, problem list reviewed. Vital Signs Period Temp Pulse Resp BP Sys/Null Pulse Ox Last 24 Hr 97.3 F-98.4 F 73-97 16-20 112-134/70-78 97-98
[2019-11-22] MEDS: PRENATAL VITAMINS W/ FOLIC ACID TABLET (FP) PO SCH (09:12)
[2019-11-22] MEDS: LISINOPRIL 20 MG TABLET (FP) PO SCH (09:12)
[2019-11-22] MEDS: PANTOPRAZOLE 40 MG TABLET PO SCH ×2 (09:12→21:40)
[2019-11-22] MEDS: amLODIPine BESYLATE 10 MG TABLET (FP) PO SCH (09:12)
[2019-11-22 10:43] LABS: HEMATOCRIT 35.7 % (32.4-45.2); HEMOGLOBIN 11.7 GM/dL (10.7-15.3); MCH 31.3 pg (25.7-33.7); MCHC 32.7 g/dl (32.0-36.0); MEAN CELL VOLUME 95.7 fl (80-96); MEAN PLT VOLUME 8.2 fl (7.5-11.1); PLATELET COUNT 162 K/MM3 (134-434); RBC 3.73 M/mm3 (3.60-5.2); RDW 14.6 % (11.6-15.6); WHITE BLOOD COUNT 4.7 K/mm3 (4.0-10.0)
[2019-11-22 11:01] LABS: ALBUMIN 4.3 g/dl (3.4-5.0); BLOOD UREA NITROGEN 17.3 mg/dL (7-18); CALCIUM 9.9 mg/dL (8.5-10.1); POTASSIUM 4.5 mmol/L (3.5-5.1)
[2019-11-22 11:04] LABS: BILIRUBIN,TOTAL 0.4 mg/dL (0.2-1); CREATININE 1.1 mg/dL (0.55-1.3); TOT PROT 8.1 g/dl (6.4-8.2)
[2019-11-22 11:27] LABS: SICKLE CELL SCREEN NEGATIVE (NEGATIVE)
[2019-11-22] MEDS: NICOTINE 14 MG/24 HOURS TOPICAL PATCH TD SCH (13:55)
[2019-11-22] MEDS ORDERED: GABAPENTIN 100 MG CAPSULE PO ONE (15:23)
[2019-11-22] MEDS: LIDOCAINE 5% TOPICAL PATCH TP SCH (15:52)
[2019-11-22] MEDS ORDERED: MASKS NR ONE (17:59)
[2019-11-22] MEDS: MAG HYDROX/AL HYDROX/SIMETH 30 ML UNIT-DOSE CUP PO PRN (19:09)
[2019-11-22] MEDS: THIAMINE HCL 100 MG TABLET (FP) PO SCH (21:40)
[2019-11-22] MEDS: MELATONIN 5 MG TABLETS PO PRN (21:40)
[2019-11-22] MEDS: LIDOCAINE PATCH REMOVAL MC SCH (21:41)
[2019-11-23] MEDS: LIPASE/PROTEASE/AMYLASE 36,000 UNIT CAPSULE PO SCH ×3 (06:59→21:24)
[2019-11-23] MEDS: PRENATAL VITAMINS W/ FOLIC ACID TABLET (FP) PO SCH (10:46)
[2019-11-23] MEDS: LIDOCAINE 5% TOPICAL PATCH TP SCH (10:47)
[2019-11-23] MEDS: PANTOPRAZOLE 40 MG TABLET PO SCH ×2 (10:47→21:24)
[2019-11-23] MEDS: NICOTINE 14 MG/24 HOURS TOPICAL PATCH TD SCH (10:47)
[2019-11-23] MEDS: amLODIPine BESYLATE 10 MG TABLET (FP) PO SCH (10:47)
[2019-11-23] MEDS: LISINOPRIL 20 MG TABLET (FP) PO SCH (10:48)
--- NOTE | 2019-11-23 11:13 | PN ---
[facility] Progress Note Note: Patient evaluated for c/o abdominal discomfort. She states she had some discomfort yesterday but denies any pain today. Patient denies reports of N/V/D and fever. Patient states she has hx of cirrhosis of liver and pancreatitis. Noted to be hypotensive and resting in bed. No c/o dizziness, headache, sob and chest pain voiced. Laboratory Tests 11/22/19 11/22/19 11/22/19 08:00 08:00 08:00 WBC 4.7 RBC 3.73 Hgb 11.7 Hct 35.7 D MCV 95.7 MCH 31.3 D MCHC 32.7 RDW 14.6 D Plt Count 162 D MPV 8.2 D Sickle Cell Screen Negative Sodium 137 Potassium 4.5 Chloride 101 Carbon Dioxide 29 Anion Gap 7 L BUN 17.3 Creatinine 1.1 Est GFR (CKD-EPI)AfAm 60.59 Est GFR (CKD-EPI)NonAf 52.28 Random Glucose 108 H Calcium 9.9 Total Bilirubin 0.4 AST 25 ALT 30 Alkaline Phosphatase 96 Total Protein 8.1 Albumin 4.3 Syphilis Serology Non-reactive Vital Signs Temperature 98.1 F 11/23/19 08:57 Pulse Rate 64 11/23/19 08:57 Respiratory Rate 18 11/23/19 08:57 Blood Pressure 80/49 L 11/23/19 08:57 O2 Sat by Pulse Oximetry (%) 99 11/23/19 08:07 PE alert and oriented x 3 skin warm and dry +perrla, eoms intact bl neck supple, no jvd car s1s2 resp cta bl gi nontender, softly distended, +BM yesterday ext full rom, amb ad cely A/P: Hypotension abdominal discomfort resolved patient resting in bed oral fluids encouraged v/s monitored as per protocol monitor clinically
[2019-11-23] MEDS ORDERED: PT OWN MED DRAWER 7, Y5N ONE (19:01)
[2019-11-23] MEDS: LIDOCAINE PATCH REMOVAL MC SCH (21:24)
[2019-11-23] MEDS: MELATONIN 5 MG TABLETS PO PRN (21:24)
[2019-11-23] MEDS: THIAMINE HCL 100 MG TABLET (FP) PO SCH (21:24)
[2019-11-24] MEDS: LIPASE/PROTEASE/AMYLASE 36,000 UNIT CAPSULE PO SCH ×3 (06:45→21:46)
[2019-11-24] MEDS: LIDOCAINE 5% TOPICAL PATCH TP SCH (09:46)
[2019-11-24] MEDS: LISINOPRIL 20 MG TABLET (FP) PO SCH (09:46)
[2019-11-24] MEDS: NICOTINE 14 MG/24 HOURS TOPICAL PATCH TD SCH (09:46)
[2019-11-24] MEDS: amLODIPine BESYLATE 10 MG TABLET (FP) PO SCH (09:46)
[2019-11-24] MEDS: PANTOPRAZOLE 40 MG TABLET PO SCH ×2 (09:46→21:46)
[2019-11-24] MEDS: PRENATAL VITAMINS W/ FOLIC ACID TABLET (FP) PO SCH (09:46)
[2019-11-24 13:27] LABS: PH,URINE 7.5 (5.0-8.0); URINE APPEARANCE Clear; URINE BILIRUBIN Negative (NEGATIVE); URINE COLOR Yellow; URINE GLUCOSE (UA) Negative (NEGATIVE); URINE KETONE Negative (NEGATIVE); URINE LEUK ESTERASE Trace (NEGATIVE); URINE NITRITE Negative (NEGATIVE); URINE PROTEIN Negative (NEGATIVE); URINE UROBILINOGEN 0.2 mg/dL (0.2-1.0)
[2019-11-24] MEDS: IBUPROFEN 400 MG TABLET (FP) PO PRN (18:48)
[2019-11-24] MEDS: MELATONIN 5 MG TABLETS PO PRN (21:46)
[2019-11-24] MEDS: THIAMINE HCL 100 MG TABLET (FP) PO SCH (21:46)
[2019-11-24] MEDS: LIDOCAINE PATCH REMOVAL MC SCH (21:46)
[2019-11-25] MEDS: LIPASE/PROTEASE/AMYLASE 36,000 UNIT CAPSULE PO SCH ×3 (06:49→21:31)
[2019-11-25] MEDS: NICOTINE 14 MG/24 HOURS TOPICAL PATCH TD SCH (09:43)
[2019-11-25] MEDS: LIDOCAINE 5% TOPICAL PATCH TP SCH (09:43)
[2019-11-25] MEDS: PANTOPRAZOLE 40 MG TABLET PO SCH ×2 (09:43→21:31)
[2019-11-25] MEDS: LISINOPRIL 20 MG TABLET (FP) PO SCH (09:43)
[2019-11-25] MEDS: amLODIPine BESYLATE 10 MG TABLET (FP) PO SCH (09:43)
[2019-11-25] MEDS: PRENATAL VITAMINS W/ FOLIC ACID TABLET (FP) PO SCH (09:43)
[2019-11-25] MEDS: THIAMINE HCL 100 MG TABLET (FP) PO SCH (21:31)
[2019-11-25] MEDS: MELATONIN 5 MG TABLETS PO PRN (21:31)
[2019-11-25] MEDS: LIDOCAINE PATCH REMOVAL MC SCH (21:31)
[2019-11-25] MEDS: IBUPROFEN 400 MG TABLET (FP) PO PRN (21:32)
[2019-11-26] MEDS: LIPASE/PROTEASE/AMYLASE 36,000 UNIT CAPSULE PO SCH ×3 (06:29→22:05)
[2019-11-26] MEDS ORDERED: PT OWN MED DRAWER 7, Y5N ONE (09:18)
[2019-11-26] MEDS: amLODIPine BESYLATE 10 MG TABLET (FP) PO SCH (09:55)
[2019-11-26] MEDS: LISINOPRIL 20 MG TABLET (FP) PO SCH (09:55)
[2019-11-26] MEDS: PANTOPRAZOLE 40 MG TABLET PO SCH ×2 (09:55→22:05)
[2019-11-26] MEDS: NICOTINE 14 MG/24 HOURS TOPICAL PATCH TD SCH (09:55)
[2019-11-26] MEDS: PRENATAL VITAMINS W/ FOLIC ACID TABLET (FP) PO SCH (09:55)
[2019-11-26] MEDS: LIDOCAINE 5% TOPICAL PATCH TP SCH (09:55)
--- NOTE | 2019-11-26 11:40 | PN ---
[facility] Progress Note Note: Patient c/o right wrist/hand pain, states right 4-5th fingers with limited movement. Patient denies recent injuries and states she has had symptoms x one month but never went to doctor for evaluation. Vital Signs Temperature 97.7 F 11/26/19 08:26 Pulse Rate 73 11/26/19 08:26 Respiratory Rate 18 11/26/19 08:26 Blood Pressure 116/66 11/26/19 08:26 O2 Sat by Pulse Oximetry (%) 99 11/26/19 07:12 Laboratory Tests 11/22/19 11/22/19 11/22/19 08:00 08:00 08:00 WBC 4.7 RBC 3.73 Hgb 11.7 Hct 35.7 D MCV 95.7 MCH 31.3 D MCHC 32.7 RDW 14.6 D Plt Count 162 D MPV 8.2 D Sickle Cell Screen Negative Sodium 137 Potassium 4.5 Chloride 101 Carbon Dioxide 29 Anion Gap 7 L BUN 17.3 Creatinine 1.1 Est GFR (CKD-EPI)AfAm 60.59 Est GFR (CKD-EPI)NonAf 52.28 Random Glucose 108 H Calcium 9.9 Total Bilirubin 0.4 AST 25 ALT 30 Alkaline Phosphatase 96 Total Protein 8.1 Albumin 4.3 Urine Color Urine Appearance Urine pH Ur Specific [place] Urine Protein Urine Glucose (UA) Urine Ketones Urine Blood Urine Nitrite Urine Bilirubin Urine Urobilinogen Ur Leukocyte Esterase Syphilis Serology Non-reactive 11/24/19 11:50 WBC RBC Hgb Hct MCV MCH MCHC RDW Plt Count MPV Sickle Cell Screen Sodium Potassium Chloride Carbon Dioxide Anion Gap BUN Creatinine Est GFR (CKD-EPI)AfAm Est GFR (CKD-EPI)NonAf Random Glucose Calcium Total Bilirubin AST ALT Alkaline Phosphatase Total Protein Albumin Urine Color Yellow Urine Appearance Clear Urine pH 7.5 Ur Specific [place] 1.020 Urine Protein Negative Urine Glucose (UA) Negative Urine Ketones Negative Urine Blood Negative Urine Nitrite Negative Urine Bilirubin Negative Urine Urobilinogen 0.2 Ur Leukocyte Esterase Trace Syphilis Serology PE alert and oriented x 3 skin warm and dry neck supple, no jvd ext amb ad cely, right wrist without redness/swelling, mild tenderness to touch right 4-5th fingers flexed, restricted movement due to discomfort, mildly swollen A/P right wrist/hand/finger discomfort continue ibuprofen prn check right hand/wrist xray monitor clinically
[2019-11-26] MEDS: METHYL SALICYLATE/MENTHOL OINT 30 GM TUBE TP SCH ×2 (12:30→22:04)
[2019-11-26] MEDS: IBUPROFEN 400 MG TABLET (FP) PO PRN (14:28)
[2019-11-26] MEDS: LIDOCAINE PATCH REMOVAL MC SCH (22:05)
[2019-11-26] MEDS: THIAMINE HCL 100 MG TABLET (FP) PO SCH (22:05)
[2019-11-26] MEDS: MELATONIN 5 MG TABLETS PO PRN (22:05)
[2019-11-26] MEDS: MENTHOL/PHENOL 1 EACH UD MM PRN (23:39)
[2019-11-27] MEDS: LIPASE/PROTEASE/AMYLASE 36,000 UNIT CAPSULE PO SCH ×3 (06:56→21:24)
[2019-11-27] MEDS: amLODIPine BESYLATE 10 MG TABLET (FP) PO SCH (09:30)
[2019-11-27] MEDS: PRENATAL VITAMINS W/ FOLIC ACID TABLET (FP) PO SCH (09:30)
[2019-11-27] MEDS: LISINOPRIL 20 MG TABLET (FP) PO SCH (09:30)
[2019-11-27] MEDS: METHYL SALICYLATE/MENTHOL OINT 30 GM TUBE TP SCH ×2 (09:30→21:25)
[2019-11-27] MEDS: NICOTINE 14 MG/24 HOURS TOPICAL PATCH TD SCH (09:30)
[2019-11-27] MEDS: PANTOPRAZOLE 40 MG TABLET PO SCH ×2 (09:30→21:24)
[2019-11-27] MEDS: LIDOCAINE 5% TOPICAL PATCH TP SCH (09:30)
[2019-11-27] MEDS: MENTHOL/PHENOL 1 EACH UD MM PRN ×3 (09:33→22:52)
[2019-11-27] MEDS: MAG HYDROX/AL HYDROX/SIMETH 30 ML UNIT-DOSE CUP PO PRN (10:23)
[2019-11-27] MEDS: THIAMINE HCL 100 MG TABLET (FP) PO SCH (21:24)
[2019-11-27] MEDS: MELATONIN 5 MG TABLETS PO PRN (21:24)
[2019-11-27] MEDS: LIDOCAINE PATCH REMOVAL MC SCH (21:24)
[2019-11-27] MEDS: IBUPROFEN 400 MG TABLET (FP) PO PRN (21:25)
[2019-11-28] MEDS: LIPASE/PROTEASE/AMYLASE 36,000 UNIT CAPSULE PO SCH ×3 (06:00→21:44)
[2019-11-28] MEDS: MENTHOL/PHENOL 1 EACH UD MM PRN ×2 (06:41→13:50)
[2019-11-28] MEDS: LIDOCAINE 5% TOPICAL PATCH TP SCH (10:10)
[2019-11-28] MEDS: LISINOPRIL 20 MG TABLET (FP) PO SCH (10:11)
[2019-11-28] MEDS: PANTOPRAZOLE 40 MG TABLET PO SCH ×2 (10:11→21:44)
[2019-11-28] MEDS: amLODIPine BESYLATE 10 MG TABLET (FP) PO SCH (10:11)
[2019-11-28] MEDS: NICOTINE 14 MG/24 HOURS TOPICAL PATCH TD SCH (10:11)
[2019-11-28] MEDS: PRENATAL VITAMINS W/ FOLIC ACID TABLET (FP) PO SCH (10:11)
[2019-11-28] MEDS: METHYL SALICYLATE/MENTHOL OINT 30 GM TUBE TP SCH ×2 (10:12→21:46)
[2019-11-28] MEDS: IBUPROFEN 400 MG TABLET (FP) PO PRN ×2 (10:13→21:45)
[2019-11-28] MEDS ORDERED: PT OWN MED DRAWER 7, Y5N ONE (13:49)
[2019-11-28] MEDS: guaiFENesin 200 MG/10 ML 10 ML UNIT-DOSE CUPS PO PRN (19:30)
[2019-11-28] MEDS: THIAMINE HCL 100 MG TABLET (FP) PO SCH (21:44)
[2019-11-28] MEDS: LIDOCAINE PATCH REMOVAL MC SCH (21:44)
[2019-11-28] MEDS: MELATONIN 5 MG TABLETS PO PRN (21:44)
[2019-11-29] MEDS: LIPASE/PROTEASE/AMYLASE 36,000 UNIT CAPSULE PO SCH ×3 (06:03→21:24)
[2019-11-29] MEDS: MENTHOL/PHENOL 1 EACH UD MM PRN ×4 (06:09→23:07)
[2019-11-29] MEDS: LIDOCAINE 5% TOPICAL PATCH TP SCH (10:24)
[2019-11-29] MEDS: NICOTINE 14 MG/24 HOURS TOPICAL PATCH TD SCH (10:24)
[2019-11-29] MEDS: PANTOPRAZOLE 40 MG TABLET PO SCH ×2 (10:24→21:24)
[2019-11-29] MEDS: METHYL SALICYLATE/MENTHOL OINT 30 GM TUBE TP SCH ×2 (10:24→21:25)
[2019-11-29] MEDS: amLODIPine BESYLATE 10 MG TABLET (FP) PO SCH (10:24)
[2019-11-29] MEDS: LISINOPRIL 20 MG TABLET (FP) PO SCH (10:24)
[2019-11-29] MEDS: PRENATAL VITAMINS W/ FOLIC ACID TABLET (FP) PO SCH (10:24)
[2019-11-29] MEDS: IBUPROFEN 400 MG TABLET (FP) PO PRN ×2 (10:25→21:25)
--- NOTE | 2019-11-29 10:53 | PN ---
S Progress Note Note: Discussed results of right wrist x-ray with patient. Osteoarthritis Advised patient to use tylenol for pain, continue exercises as recommended prior to admission Patient understood instructions Vital Signs Period Temp Pulse Resp BP Sys/Null Pulse Ox Last 24 Hr 97.5 F-98.6 F 79 18-18 117/82 97-98
[2019-11-29] MEDS: LIDOCAINE PATCH REMOVAL MC SCH (21:24)
[2019-11-29] MEDS: MELATONIN 5 MG TABLETS PO PRN (21:24)
[2019-11-29] MEDS: THIAMINE HCL 100 MG TABLET (FP) PO SCH (21:24)
[2019-11-30] MEDS: LIPASE/PROTEASE/AMYLASE 36,000 UNIT CAPSULE PO SCH ×3 (06:39→21:31)
[2019-11-30] MEDS: MENTHOL/PHENOL 1 EACH UD MM PRN ×2 (06:40→15:13)
[2019-11-30] MEDS: guaiFENesin 200 MG/10 ML 10 ML UNIT-DOSE CUPS PO PRN (06:41)
[2019-11-30] MEDS: NICOTINE 14 MG/24 HOURS TOPICAL PATCH TD SCH (09:57)
[2019-11-30] MEDS: PANTOPRAZOLE 40 MG TABLET PO SCH ×2 (09:57→21:31)
[2019-11-30] MEDS: PRENATAL VITAMINS W/ FOLIC ACID TABLET (FP) PO SCH (09:57)
[2019-11-30] MEDS: METHYL SALICYLATE/MENTHOL OINT 30 GM TUBE TP SCH ×2 (09:58→21:32)
[2019-11-30] MEDS: LIDOCAINE 5% TOPICAL PATCH TP SCH (09:58)
[2019-11-30] MEDS ORDERED: PT OWN MED DRAWER 7, Y5N ONE (09:58)
[2019-11-30] MEDS: LISINOPRIL 20 MG TABLET (FP) PO SCH (12:30)
[2019-11-30] MEDS: amLODIPine BESYLATE 10 MG TABLET (FP) PO SCH (12:30)
[2019-11-30] MEDS: IBUPROFEN 400 MG TABLET (FP) PO PRN (14:01)
[2019-11-30] MEDS: MELATONIN 5 MG TABLETS PO PRN (21:31)
[2019-11-30] MEDS: THIAMINE HCL 100 MG TABLET (FP) PO SCH (21:31)
[2019-11-30] MEDS: LIDOCAINE PATCH REMOVAL MC SCH (21:31)
[2019-12-01] MEDS: LIPASE/PROTEASE/AMYLASE 36,000 UNIT CAPSULE PO SCH ×3 (06:02→21:45)
[2019-12-01] MEDS: guaiFENesin 200 MG/10 ML 10 ML UNIT-DOSE CUPS PO PRN (07:10)
[2019-12-01] MEDS: MENTHOL/PHENOL 1 EACH UD MM PRN ×2 (07:10→15:18)
[2019-12-01] MEDS: PANTOPRAZOLE 40 MG TABLET PO SCH ×2 (10:36→22:59)
[2019-12-01] MEDS: LISINOPRIL 20 MG TABLET (FP) PO SCH (10:36)
[2019-12-01] MEDS: NICOTINE 14 MG/24 HOURS TOPICAL PATCH TD SCH (10:36)
[2019-12-01] MEDS: PRENATAL VITAMINS W/ FOLIC ACID TABLET (FP) PO SCH (10:37)
[2019-12-01] MEDS: LIDOCAINE 5% TOPICAL PATCH TP SCH (10:37)
[2019-12-01] MEDS: amLODIPine BESYLATE 10 MG TABLET (FP) PO SCH (10:37)
[2019-12-01] MEDS: METHYL SALICYLATE/MENTHOL OINT 30 GM TUBE TP SCH ×2 (11:02→23:05)
[2019-12-01] MEDS ORDERED: PT OWN MED DRAWER 7, Y5N ONE (19:04)
[2019-12-01] MEDS: THIAMINE HCL 100 MG TABLET (FP) PO SCH (21:44)
[2019-12-01] MEDS: MELATONIN 5 MG TABLETS PO PRN (21:46)
[2019-12-01] MEDS: LIDOCAINE PATCH REMOVAL MC SCH (23:05)
[2019-12-02] MEDS: MENTHOL/PHENOL 1 EACH UD MM PRN ×2 (06:26→20:11)
[2019-12-02] MEDS: guaiFENesin 200 MG/10 ML 10 ML UNIT-DOSE CUPS PO PRN ×2 (06:27→20:10)
[2019-12-02] MEDS: LIPASE/PROTEASE/AMYLASE 36,000 UNIT CAPSULE PO SCH ×3 (06:27→22:02)
[2019-12-02] MEDS: LISINOPRIL 20 MG TABLET (FP) PO SCH (09:31)
[2019-12-02] MEDS: PANTOPRAZOLE 40 MG TABLET PO SCH ×2 (09:31→22:02)
[2019-12-02] MEDS: amLODIPine BESYLATE 10 MG TABLET (FP) PO SCH (09:31)
[2019-12-02] MEDS: LIDOCAINE 5% TOPICAL PATCH TP SCH (09:31)
[2019-12-02] MEDS: PRENATAL VITAMINS W/ FOLIC ACID TABLET (FP) PO SCH (09:31)
[2019-12-02] MEDS: METHYL SALICYLATE/MENTHOL OINT 30 GM TUBE TP SCH ×2 (09:32→22:01)
[2019-12-02] MEDS: NICOTINE 14 MG/24 HOURS TOPICAL PATCH TD SCH (09:32)
[2019-12-02] MEDS ORDERED: PT OWN MED DRAWER 7, Y5N ONE (21:05)
[2019-12-02] MEDS: LIDOCAINE PATCH REMOVAL MC SCH (22:02)
[2019-12-02] MEDS: THIAMINE HCL 100 MG TABLET (FP) PO SCH (22:02)
[2019-12-02] MEDS: MELATONIN 5 MG TABLETS PO PRN (22:04)
[2019-12-03] MEDS: MENTHOL/PHENOL 1 EACH UD MM PRN ×2 (06:38→10:05)
[2019-12-03] MEDS: guaiFENesin 200 MG/10 ML 10 ML UNIT-DOSE CUPS PO PRN (06:38)
[2019-12-03] MEDS: LIPASE/PROTEASE/AMYLASE 36,000 UNIT CAPSULE PO SCH ×3 (06:38→21:21)
[2019-12-03] MEDS: PRENATAL VITAMINS W/ FOLIC ACID TABLET (FP) PO SCH (10:04)
[2019-12-03] MEDS: PANTOPRAZOLE 40 MG TABLET PO SCH ×2 (10:04→21:20)
[2019-12-03] MEDS: LISINOPRIL 20 MG TABLET (FP) PO SCH (10:04)
[2019-12-03] MEDS: LIDOCAINE 5% TOPICAL PATCH TP SCH (10:04)
[2019-12-03] MEDS: METHYL SALICYLATE/MENTHOL OINT 30 GM TUBE TP SCH ×2 (10:04→21:21)
[2019-12-03] MEDS: NICOTINE 14 MG/24 HOURS TOPICAL PATCH TD SCH (10:04)
[2019-12-03] MEDS: amLODIPine BESYLATE 10 MG TABLET (FP) PO SCH (10:04)
[2019-12-03] MEDS: IBUPROFEN 400 MG TABLET (FP) PO PRN (10:13)
[2019-12-03] MEDS: THIAMINE HCL 100 MG TABLET (FP) PO SCH (21:20)
[2019-12-03] MEDS: MELATONIN 5 MG TABLETS PO PRN (21:20)
[2019-12-03] MEDS: LIDOCAINE PATCH REMOVAL MC SCH (21:21)
[2019-12-04] MEDS: guaiFENesin 200 MG/10 ML 10 ML UNIT-DOSE CUPS PO PRN (06:19)
[2019-12-04] MEDS: MENTHOL/PHENOL 1 EACH UD MM PRN (06:20)
[2019-12-04] MEDS: LIPASE/PROTEASE/AMYLASE 36,000 UNIT CAPSULE PO SCH (06:20)
--- NOTE | 2019-12-04 09:06 | DS ---
[facility] Rehab Discharge Summary - [facility] Rehab Discharge Summary Admission Date: 11/21/19 Discharge Date: 12/04/19 - History Present History: Alcohol dependence Pertinent Past History: 68 y.o female requesting rehab for alcohol use s/p hospitalization @ [facility] 11/15-11/20 covid negatiVe 11/19/2019 DENIES H//O SEIZURES PMHx: HTN on Lisinopril , (L) THR,PANCREATITIS W/ PSEUDOCYST , (L) knee pain - uses cane , COPD , HEP c CIRRHOSIS S/P HARVONI , DVT NO LONGER ON AC PSYCH HX : INSOMNIA - Discharge Physical Exam Vital Signs: Vital Signs Temperature 98.2 F 12/04/19 07:11 Pulse Rate 80 12/04/19 07:11 Respiratory Rate 18 12/04/19 07:11 Blood Pressure 125/72 12/04/19 07:11 O2 Sat by Pulse Oximetry (%) 98 12/04/19 07:11 Pertinent Admission Physical Exam Findings: Physical General Appearance: No apparent distress HEENTM: Normocephalic, Respiratory: Lungs Clear Breath Sounds, No Respiratory Distress, No Accessory Muscle Use Neck: supple Cardiology: S1, S2 Abdominal: +BS Musculoskeletal: Full weight bearing, Full ROM, Gait Steady - Treatment Discharge Condition: Outpatient referral accepted (Medically stable for discharge. Patient will go to [facility] for aftercare) Hospital Course: Patient attended groups, had 1;1 with her counselor. She was adherent to her medication regimen and treatment plan. She was seen by medical providers for abd pain and hand pain. Both issues were resolved. - Medication Discharge Medications: Ambulatory Orders Lipase/Protease/Amylase [Pranay Alberto 36,000 Units Capsule] 1 each PO BID 08/14/18 Albuterol Sulfate Inhaler - [Ventolin HFA Inhaler -] 2 inh PO Q4H 08/15/18 Gabapentin [Neurontin -] 100 mg PO Q8H 08/15/18 Lisinopril 20 mg PO DAILY 08/17/18 Pantoprazole Sodium [Protonix -] 40 mg PO BID 08/17/18 Amlodipine Besylate [Norvasc -] 10 mg PO DAILY #30 tablet 08/18/18 Unobtainable 08/18/18 Meclizine HCl 12.5 mg PO TID 05/24/19 - Medication-Assisted Treatment (MAT) Medication-Assisted Treatment (MAT): No - Discharge Instructions Diet, activity, other medical instructions: Diet: as tolerated Activity: as tolerated Other medical instructions: Please follow up with aftercare referral. - Diagnosis (1) Alcohol dependence Current Visit: Yes Status: Chronic Qualifiers: Substance use status: in remission Qualified Code(s): F10.21 - Alcohol dependence, in remission - Follow-up Referral Minutes to complete discharge: 15 - AMA Did Patient Leave Against Medical Advice: No
[2019-12-04] MEDS: LISINOPRIL 20 MG TABLET (FP) PO SCH (09:18)
[2019-12-04] MEDS: amLODIPine BESYLATE 10 MG TABLET (FP) PO SCH (09:18)
[2019-12-04] MEDS: PANTOPRAZOLE 40 MG TABLET PO SCH (09:18)
[2019-12-04] MEDS: PRENATAL VITAMINS W/ FOLIC ACID TABLET (FP) PO SCH (09:18)
[2019-12-04] MEDS: LIDOCAINE 5% TOPICAL PATCH TP SCH (09:19)
[2019-12-04] MEDS: NICOTINE 14 MG/24 HOURS TOPICAL PATCH TD SCH (09:19)
[2019-12-04] MEDS: METHYL SALICYLATE/MENTHOL OINT 30 GM TUBE TP SCH (09:19)
[2019-12-04 09:46] VITALS: BP 127/76; PULSE 91; TEMP 97.5
== END 2019-12-04 10:03 | disposition home or self-care (01) | DRG 895 ==
LOC: YASAS 15:15 → Y3W 20:23
PROVIDERS: ADMIT Allergy & Immunology; ATTEND Allergy & Immunology
PROC: HZ42ZZZ Group Counseling for Substance Abuse Treatment, Cognitive-Behavioral (ICD-10-PCS; principal; 2019-11-21)
DX: F10.20 Alcohol dependence, uncomplicated (principal); K86.3 Pseudocyst of pancreas; K86.1 Other chronic pancreatitis; F17.210 Nicotine dependence, cigarettes, uncomplicated; I10 Essential (primary) hypertension; G47.00 Insomnia, unspecified; I95.9 Hypotension, unspecified; J44.9 Chronic obstructive pulmonary disease, unspecified; K21.9 Gastro-esophageal reflux disease without esophagitis; K74.60 Unspecified cirrhosis of liver; B19.20 Unspecified viral hepatitis C without hepatic coma; M19.031 Primary osteoarthritis, right wrist; M25.562 Pain in left knee; Z96.642 Presence of left artificial hip joint; Z99.89 Dependence on other enabling machines and devices; Z86.718 Personal history of other venous thrombosis and embolism
CPT/HCPCS: 36415; 73110-TC-RT-FY; 73130-TC-RT-FY; 80053; 81003; 85027; 85660; 86780

== ENCOUNTER 2020-01-17 15:57 | Inpatient (IN) | payer OTHER ==
--- NOTE | 2020-01-17 17:05 | HP ---
CIWA Score Nausea/Vomitin-Mild Nausea/No Vomiting Muscle Tremors: 4-Moderate,w/Arms Extend Anxiety: 0-No Anxiety, at Ease Agitation: 0-Normal Activity Paroxysmal Sweats: No Perspiration Orientation: 0-Oriented Tacttile Disturbances: 0-None Auditory Disturbances: 0-None Visual Disturbances: 0-None Headache: 2-Mild CIWA-Ar Total Score: 7 - Admission Criteria OASAS Guidelines: Admission for Medically Managed Detox: Requires at least one of the followin. CIWA greater than 12 2. Seizures within the past 24 hours 3. Delirium tremens within the past 24 hours 4. Hallucinations within the past 24 hours 5. Acute intervention needed for co occurring medical disorder 6. Acute intervention needed for co occurring psychiatric disorder 7. Severe withdrawal that cannot be handled at a lower level of care (continued vomiting, continued diarrhea, abnormal vital signs) requiring intravenous medication and/or fluids 8. Admitting History and Physical - Smoking History Smoking history: Unknown if ever smoked Have you smoked in the past 12 months: No Aproximately how many cigarettes per day: 20 - Alcohol/Substance Use Hx Alcohol Use: Yes Admission ROS [facility] - HPI Allergies/Adverse Reactions: Allergies Allergy/AdvReac Type Severity Reaction Status Date / Time No Known Drug Allergies Allergy Verified 01/17/20 17:57 History of Present Illness: 68 y.o female requesting detox for alcohol use , reports drinking alcohol since early mornings to stop tremors . Pt was @ [facility] today , given meds in ER PMHx: HTN on Lisinopril , (L) THR, PANCREATITIS W/ PSEUDOCYST, (L) knee pain - uses cane , COPD , HEP C CIRRHOSIS S/P HARVONI , DVT NO LONGER ON AC cocaine - occasional use tobacco : 1 ppd pshX ; ABOVE PSYCH HX : INSOMNIA Exam Limitations: Clinical Condition - Review of Systems Constitutional: Loss of Appetite EENT: reports: No Symptoms Reported, Other (glasses) Respiratory: reports: No Symptoms reported Cardiac: reports: No Symptoms Reported GI: reports: Diarrhea, Poor Appetite : reports: No Symptoms Reported Musculoskeletal: reports: See HPI, Joint Pain (left knee - chronic , left THR) Integumentary: reports: No Symptoms Reported Neuro: reports: See HPI, Headache, Tremors Endocrine: reports: No Symptoms Reported Hematology: reports: No Symptoms Reported Psychiatric: reports: Orientated x3, Anxious Patient History - Patient Medical History Hx Anemia: No Hx Asthma: No Hx Chronic Obstructive Pulmonary Disease (COPD): No Hx Cancer: No Hx Cardiac Disorders: No Hx Congestive Heart Failure: No Hx Hypertension: Yes (Amlodipine, Lisinopril) Hx Hypercholesterolemia: No HX Cerebrovascular Accident: No Hx Seizures: No Hx Diabetes: No Hx Gastrointestinal Disorders: Yes (GERD, Pancreatitis) Hx Liver Disease: Yes (Cirrhosis of liver) Hx Genitourinary Disorders: No Hx Sexually Transmitted Disorders: No Hx Renal Disease (ESRD): No Hx Thyroid Disease: No Hx Human Immunodeficiency Virus (HIV): No (Negative 15 years ago) Hx Hepatitis C: No Hx Depression: No Hx Suicide Attempt: No (Denies suicidal ideation at this time) Hx Bipolar Disorder: No Hx Schizophrenia: No - Patient Surgical History Past Surgical History: Yes Hx Neurologic Surgery: No Hx Cataract Extraction: No Hx Cardiac Surgery: No Hx Lung Surgery: No Hx Breast Surgery: No Hx Breast Biopsy: No Hx Abdominal Surgery: No Hx Appendectomy: No Hx Cholecystectomy: No Hx Genitourinary Surgery: No Hx Section: No Hx Orthopedic Surgery: Yes (L Hip Replacement 2012) Hx Hysterectomy: No Anesthesia Reaction: No - PPD History Date: 08/16/18 - Smoking Cessation Smoking history: Unknown if ever smoked Have you smoked in the past 12 months: No Aproximately how many cigarettes per day: 20 Hx Chewing Tobacco Use: No - Substances abused Alcohol Substance route: Oral Frequency: Daily Amount used: "I dont know as much as I can get" Age of first use: 14 Date of last use: 01/16/20 Crack Substance route: Smoking Frequency: 1-3 times last 30 days Amount used: "I dont know" Admission Physical Exam S - Physical General Appearance: Yes: Disheveled, Mild Distress, Tremorous HEENTM: Yes: EOMI, Hearing grossly Normal, Normocephalic, Muffled/Hoarse Voice Respiratory: Yes: Chest Non-Tender, Lungs Clear, Normal Breath Sounds, No Respiratory Distress, No Accessory Muscle Use Neck: Yes: No masses,lesions,Nodules, Trachea in good position Cardiology: Yes: Regular Rhythm, Regular Rate, S1, S2 Abdominal: Yes: Non Tender, Soft Musculoskeletal: Yes: Joint Stiffness (left knee) Extremities: Yes: Non-Tender, Tremors, Other (right IVth and Vth fingers palsy ( ulnar neuropathy vs entrapment syndrome ) per pt x 2 months , s/p fall while intoxicated , went to [facility] and was givne a hand brace which she uses intermittently . No frx noted / reported . Full ROM RIGHT elbow , right wrist) Neurological: Yes: Fully Oriented, Alert, Motor Strength 5/5, Normal Mood/Affect Integumentary: Yes: Warm - Diagnostic (1) Alcohol dependence with uncomplicated withdrawal Current Visit: Yes Status: Chronic Breathalyzer - Breathalyzer Breathalyzer: 0 Urine Drug Screen - Test Device Lot number: [id number] Expiration date: 01/27/21 - Control Is test valid?: Yes - Results Drug screen NEGATIVE: No Urine drug screen results: BZO-Benzodiazepines, MOP-Opiates Inpatient Rehab Admission - Rehab Decision to Admit Inpatient rehab admission?: No
[2020-01-17] MEDS ORDERED: MENTHOL/PHENOL 1 EACH UD MM PRN (17:18)
[2020-01-17] MEDS ORDERED: IBUPROFEN 400 MG TABLET (FP) PO PRN (17:18)
[2020-01-17] MEDS ORDERED: BISMUTH SUBSALICYLATE 524 MG/30 ML UD PO PRN (17:18)
[2020-01-17] MEDS ORDERED: MAG HYDROX/AL HYDROX/SIMETH 30 ML UNIT-DOSE CUP PO PRN (17:18)
[2020-01-17] MEDS ORDERED: MAGNESIUM HYDROX 2400MG/30ML ORAL SUSPENSION 30 ML CUP PO PRN (17:18)
[2020-01-17] MEDS ORDERED: ACETAMINOPHEN 325 MG TABLET (FP) PO PRN (17:18)
[2020-01-17] MEDS ORDERED: MAGNESIUM CITRATE 300 ML BOTTLE PO PRN (17:18)
[2020-01-17] MEDS ORDERED: chlordiazePOXIDE HCL 25 MG CAPSULE PO PRN (17:23)
[2020-01-17] MEDS ORDERED: ALBUTEROL SO4 HFA INHALER IH PRN (17:30)
[2020-01-17 18:12] VITALS: BMI 18.7
[2020-01-17] MEDS: chlordiazePOXIDE HCL 25 MG CAPSULE PO SCH ×2 (19:30→22:41)
[2020-01-17] MEDS: LISINOPRIL 20 MG TABLET (FP) PO SCH (19:30)
[2020-01-17] MEDS: PANTOPRAZOLE 40 MG TABLET PO SCH (22:41)
[2020-01-17] MEDS: THIAMINE HCL 100 MG TABLET (FP) PO SCH (22:41)
[2020-01-17] MEDS: MELATONIN 5 MG TABLETS PO SCH (22:43)
[2020-01-18] MEDS: chlordiazePOXIDE HCL 25 MG CAPSULE PO SCH ×4 (06:25→23:36)
[2020-01-18] MEDS: LIPASE/PROTEASE/AMYLASE 36,000 UNIT CAPSULE PO SCH ×2 (06:42→17:37)
[2020-01-18] MEDS: PRENATAL VITAMINS W/ FOLIC ACID TABLET (FP) PO SCH (10:04)
[2020-01-18] MEDS: NICOTINE 14 MG/24 HOURS TOPICAL PATCH TD SCH (10:05)
[2020-01-18] MEDS: PANTOPRAZOLE 40 MG TABLET PO SCH ×2 (10:05→23:36)
[2020-01-18] MEDS: LISINOPRIL 20 MG TABLET (FP) PO SCH (10:05)
[2020-01-18] MEDS: amLODIPine BESYLATE 10 MG TABLET (FP) PO SCH (10:05)
[2020-01-18 10:22] LABS: HEMATOCRIT 28.2 % (32.4-45.2); HEMOGLOBIN 9.2 GM/dL (10.7-15.3); MCH 30.8 pg (25.7-33.7); MCHC 32.6 g/dl (32.0-36.0); MEAN CELL VOLUME 94.3 fl (80-96); MEAN PLT VOLUME 7.3 fl (7.5-11.1); PLATELET COUNT 158 K/MM3 (134-434); RBC 2.99 M/mm3 (3.60-5.2); RDW 15.4 % (11.6-15.6); WHITE BLOOD COUNT 4.2 K/mm3 (4.0-10.0)
--- NOTE | 2020-01-18 10:30 | PN ---
S CIWA - CIWA Score Nausea/Vomitin-No Nausea/No Vomiting Muscle Tremors: None Anxiety: 3 Agitation: 0-Normal Activity Paroxysmal Sweats: 3 Orientation: 0-Oriented Tacttile Disturbances: 0-None Auditory Disturbances: 0-None Visual Disturbances: 0-None Headache: 2-Mild CIWA-Ar Total Score: 8 BHS Progress Note (SOAP) Subjective: c/o headache, anxiety, and sweats. Objective: 01/18/20 10:29 Vital Signs 01/18/20 01/18/20 07:05 08:56 Temperature 96.9 F L 98.1 F Pulse Rate 63 70 Respiratory 18 18 Rate Blood Pressure 101/61 102/63 O2 Sat by Pulse 95 Oximetry (%) Laboratory Last Values WBC 4.2 K/mm3 (4.0-10.0) 01/18/20 07:50 RBC 2.99 M/mm3 (3.60-5.2) L 01/18/20 07:50 Hgb 9.2 GM/dL (10.7-15.3) L 01/18/20 07:50 Hct 28.2 % (32.4-45.2) L D 01/18/20 07:50 MCV 94.3 fl (80-96) 01/18/20 07:50 MCH 30.8 pg (25.7-33.7) 01/18/20 07:50 MCHC 32.6 g/dl (32.0-36.0) 01/18/20 07:50 RDW 15.4 % (11.6-15.6) 01/18/20 07:50 Plt Count 158 K/MM3 (134-434) 01/18/20 07:50 MPV 7.3 fl (7.5-11.1) L D 01/18/20 07:50 Sodium 141 mmol/L (136-145) 01/18/20 07:50 Potassium 4.5 mmol/L (3.5-5.1) 01/18/20 07:50 Chloride 108 mmol/L (98-107) H 01/18/20 07:50 Carbon Dioxide 25 mmol/L (21-32) 01/18/20 07:50 Anion Gap 8 MMOL/L (8-16) 01/18/20 07:50 BUN 23.5 mg/dL (7-18) H 01/18/20 07:50 Creatinine 1.2 mg/dL (0.55-1.3) 01/18/20 07:50 Est GFR (CKD-EPI)AfAm 54.16 01/18/20 07:50 Est GFR (CKD-EPI)NonAf 46.73 01/18/20 07:50 Random Glucose 110 mg/dL (74-106) H 01/18/20 07:50 Calcium 8.3 mg/dL (8.5-10.1) L 01/18/20 07:50 Total Bilirubin 0.8 mg/dL (0.2-1) 01/18/20 07:50 AST 31 U/L (15-37) 01/18/20 07:50 ALT 34 U/L (13-61) 01/18/20 07:50 Alkaline Phosphatase 80 U/L (45-117) 01/18/20 07:50 Total Protein 6.4 g/dl (6.4-8.2) 01/18/20 07:50 Albumin 3.3 g/dl (3.4-5.0) L 01/18/20 07:50 Syphilis Serology Non-reactive (NONREACTIVE) 01/18/20 07:50 Labs noted. Assessment: 01/18/20 10:30 AOX3, in no acute respiratory distress. Full ROM, ambulating in the unit. Withdrawal symptoms. Plan: continue detox.
[2020-01-18 10:32] LABS: POTASSIUM 4.5 mmol/L (3.5-5.1)
[2020-01-18 10:41] LABS: ALBUMIN 3.3 g/dl (3.4-5.0); BILIRUBIN,TOTAL 0.8 mg/dL (0.2-1); BLOOD UREA NITROGEN 23.5 mg/dL (7-18); CALCIUM 8.3 mg/dL (8.5-10.1); CREATININE 1.2 mg/dL (0.55-1.3); TOT PROT 6.4 g/dl (6.4-8.2)
[2020-01-18] MEDS: ACETAMINOPHEN 325 MG TABLET (FP) PO PRN (14:12)
[2020-01-18] MEDS: MELATONIN 5 MG TABLETS PO SCH (23:35)
[2020-01-18] MEDS: THIAMINE HCL 100 MG TABLET (FP) PO SCH (23:36)
[2020-01-19] MEDS: chlordiazePOXIDE HCL 25 MG CAPSULE PO SCH ×4 (05:50→22:22)
[2020-01-19] MEDS: LIPASE/PROTEASE/AMYLASE 36,000 UNIT CAPSULE PO SCH ×2 (07:45→18:53)
[2020-01-19] MEDS: LISINOPRIL 20 MG TABLET (FP) PO SCH (10:18)
[2020-01-19] MEDS: amLODIPine BESYLATE 10 MG TABLET (FP) PO SCH (10:18)
[2020-01-19] MEDS: PANTOPRAZOLE 40 MG TABLET PO SCH ×2 (10:19→22:33)
[2020-01-19] MEDS: PRENATAL VITAMINS W/ FOLIC ACID TABLET (FP) PO SCH (10:19)
[2020-01-19] MEDS: NICOTINE 14 MG/24 HOURS TOPICAL PATCH TD SCH (10:21)
--- NOTE | 2020-01-19 13:11 | PN ---
S CIWA - CIWA Score Nausea/Vomitin-No Nausea/No Vomiting Muscle Tremors: None Anxiety: 2 Agitation: 0-Normal Activity Paroxysmal Sweats: 3 Orientation: 0-Oriented Tacttile Disturbances: 0-None Auditory Disturbances: 0-None Visual Disturbances: 0-None Headache: 1-Very Mild CIWA-Ar Total Score: 6 BHS Progress Note (SOAP) Subjective: c/o anxiety, sweats, and headache. Objective: 01/19/20 13:11 Vital Signs 01/19/20 01/19/20 06:50 08:46 Temperature 97.5 F L 97.2 F L Pulse Rate 73 73 Respiratory 18 18 Rate Blood Pressure 102/61 107/66 O2 Sat by Pulse 97 Oximetry (%) Laboratory Last Values WBC 4.2 K/mm3 (4.0-10.0) 01/18/20 07:50 RBC 2.99 M/mm3 (3.60-5.2) L 01/18/20 07:50 Hgb 9.2 GM/dL (10.7-15.3) L 01/18/20 07:50 Hct 28.2 % (32.4-45.2) L D 01/18/20 07:50 MCV 94.3 fl (80-96) 01/18/20 07:50 MCH 30.8 pg (25.7-33.7) 01/18/20 07:50 MCHC 32.6 g/dl (32.0-36.0) 01/18/20 07:50 RDW 15.4 % (11.6-15.6) 01/18/20 07:50 Plt Count 158 K/MM3 (134-434) 01/18/20 07:50 MPV 7.3 fl (7.5-11.1) L D 01/18/20 07:50 Sodium 141 mmol/L (136-145) 01/18/20 07:50 Potassium 4.5 mmol/L (3.5-5.1) 01/18/20 07:50 Chloride 108 mmol/L (98-107) H 01/18/20 07:50 Carbon Dioxide 25 mmol/L (21-32) 01/18/20 07:50 Anion Gap 8 MMOL/L (8-16) 01/18/20 07:50 BUN 23.5 mg/dL (7-18) H 01/18/20 07:50 Creatinine 1.2 mg/dL (0.55-1.3) 01/18/20 07:50 Est GFR (CKD-EPI)AfAm 54.16 01/18/20 07:50 Est GFR (CKD-EPI)NonAf 46.73 01/18/20 07:50 Random Glucose 110 mg/dL (74-106) H 01/18/20 07:50 Calcium 8.3 mg/dL (8.5-10.1) L 01/18/20 07:50 Total Bilirubin 0.8 mg/dL (0.2-1) 01/18/20 07:50 AST 31 U/L (15-37) 01/18/20 07:50 ALT 34 U/L (13-61) 01/18/20 07:50 Alkaline Phosphatase 80 U/L (45-117) 01/18/20 07:50 Total Protein 6.4 g/dl (6.4-8.2) 01/18/20 07:50 Albumin 3.3 g/dl (3.4-5.0) L 01/18/20 07:50 Syphilis Serology Non-reactive (NONREACTIVE) 01/18/20 07:50 COVID-19 ([facility]) Not detected (Not Detected) 01/17/20 18:00 Labs noted. Assessment: 01/19/20 13:11 AOX3, in no acute respiratory distress. Full ROM, ambulating in the unit. Withdrawal symptoms. Plan: continue detox.
[2020-01-19] MEDS: LIDOCAINE 5% TOPICAL PATCH TP SCH (15:13)
[2020-01-19] MEDS: MELATONIN 5 MG TABLETS PO SCH (22:22)
[2020-01-19] MEDS: THIAMINE HCL 100 MG TABLET (FP) PO SCH (22:22)
[2020-01-19] MEDS: LIDOCAINE PATCH REMOVAL MC SCH (22:24)
[2020-01-20] MEDS ORDERED: chlordiazePOXIDE HCL 10 MG CAPSULE PO PRN
[2020-01-20] MEDS: chlordiazePOXIDE HCL 10 MG CAPSULE PO SCH ×4 (06:14→22:08)
[2020-01-20] MEDS: ACETAMINOPHEN 325 MG TABLET (FP) PO PRN (06:38)
[2020-01-20] MEDS: LIPASE/PROTEASE/AMYLASE 36,000 UNIT CAPSULE PO SCH ×2 (07:57→17:06)
[2020-01-20] MEDS: LISINOPRIL 20 MG TABLET (FP) PO SCH (10:17)
[2020-01-20] MEDS: amLODIPine BESYLATE 10 MG TABLET (FP) PO SCH (10:17)
[2020-01-20] MEDS: PRENATAL VITAMINS W/ FOLIC ACID TABLET (FP) PO SCH (10:17)
[2020-01-20] MEDS: PANTOPRAZOLE 40 MG TABLET PO SCH ×2 (10:17→22:08)
[2020-01-20] MEDS: LIDOCAINE 5% TOPICAL PATCH TP SCH (10:18)
[2020-01-20] MEDS: NICOTINE 14 MG/24 HOURS TOPICAL PATCH TD SCH (10:19)
[2020-01-20] MEDS ORDERED: ONDANSETRON *ODT* 4 MG TABLET SL ONE (11:16)
--- NOTE | 2020-01-20 12:11 | PN ---
S CIWA - CIWA Score Nausea/Vomitin-Mild Nausea/No Vomiting Muscle Tremors: 1-None Visible, but [place] Anxiety: 0-No Anxiety, at Ease Agitation: 3 Paroxysmal Sweats: No Perspiration Orientation: 0-Oriented Tacttile Disturbances: 0-None Auditory Disturbances: 0-None Visual Disturbances: 0-None Headache: 0-None Present CIWA-Ar Total Score: 5 BHS Progress Note (SOAP) Subjective: 69 years old female admitted on 01/17/20 for alcohol withdrawal sx management treating with librium detox regiment ms cassidy reports last night received pills around 10 pm "made me sick" nausea zofran 4 mg sl x 1 chart reviewed ms cassidy received vitamin B and melatonin and librium around 10 pm change vitamin b to 2 pm today change melatonin to prn Objective: 01/20/20 12:09 Vital Signs - 24 hr 01/19/20 01/19/20 01/19/20 12:55 16:45 20:42 Temperature 97.1 F L 97.1 F L 97.3 F L Pulse Rate 72 84 89 Respiratory 18 18 18 Rate Blood Pressure 106/71 102/74 123/74 O2 Sat by Pulse 99 96 Oximetry (%) 01/20/20 01/20/20 01/20/20 01:54 06:16 08:46 Temperature 97.3 F L 98.0 F 96.7 F L Pulse Rate 89 89 85 Respiratory 18 16 16 Rate Blood Pressure 123/74 105/54 L 110/69 O2 Sat by Pulse 96 98 98 Oximetry (%) Laboratory Tests 01/17/20 01/18/20 01/18/20 18:00 07:50 07:50 WBC 4.2 RBC 2.99 L Hgb 9.2 L Hct 28.2 L D MCV 94.3 MCH 30.8 MCHC 32.6 RDW 15.4 Plt Count 158 MPV 7.3 L D Sodium Potassium Chloride Carbon Dioxide Anion Gap BUN Creatinine Est GFR (CKD-EPI)AfAm Est GFR (CKD-EPI)NonAf Random Glucose Calcium Total Bilirubin AST ALT Alkaline Phosphatase Total Protein Albumin Syphilis Serology Non-reactive COVID-19 ([facility]) Not detected 01/18/20 07:50 WBC RBC Hgb Hct MCV MCH MCHC RDW Plt Count MPV Sodium 141 Potassium 4.5 Chloride 108 H Carbon Dioxide 25 Anion Gap 8 BUN 23.5 H Creatinine 1.2 Est GFR (CKD-EPI)AfAm 54.16 Est GFR (CKD-EPI)NonAf 46.73 Random Glucose 110 H Calcium 8.3 L Total Bilirubin 0.8 AST 31 ALT 34 Alkaline Phosphatase 80 Total Protein 6.4 Albumin 3.3 L Syphilis Serology COVID-19 ([facility]) anemia 01/20/20 12:13 ferrous sulfate 325mg po daily Assessment: 01/20/20 12:13 alcohol withdrawal Plan: librium regiment
[2020-01-20] MEDS: FERROUS SO4 325 MG TABLET (FP) PO SCH (15:49)
[2020-01-20] MEDS: LIDOCAINE PATCH REMOVAL MC SCH (22:08)
[2020-01-20] MEDS: MELATONIN 5 MG TABLETS PO PRN (22:10)
[2020-01-21] MEDS: LIPASE/PROTEASE/AMYLASE 36,000 UNIT CAPSULE PO SCH ×2 (06:06→16:58)
[2020-01-21] MEDS: chlordiazePOXIDE HCL 10 MG CAPSULE PO SCH ×2 (06:06→16:55)
[2020-01-21] MEDS: PRENATAL VITAMINS W/ FOLIC ACID TABLET (FP) PO SCH (09:18)
[2020-01-21] MEDS: LIDOCAINE 5% TOPICAL PATCH TP SCH (09:21)
[2020-01-21] MEDS: FERROUS SO4 325 MG TABLET (FP) PO SCH (09:21)
[2020-01-21] MEDS: NICOTINE 14 MG/24 HOURS TOPICAL PATCH TD SCH (09:21)
[2020-01-21] MEDS: LISINOPRIL 20 MG TABLET (FP) PO SCH (09:21)
[2020-01-21] MEDS: PANTOPRAZOLE 40 MG TABLET PO SCH ×2 (09:21→22:26)
[2020-01-21] MEDS: amLODIPine BESYLATE 10 MG TABLET (FP) PO SCH (09:21)
--- NOTE | 2020-01-21 10:37 | PN ---
S CIWA - CIWA Score Nausea/Vomitin-No Nausea/No Vomiting Muscle Tremors: 1-None Visible, but [place] Anxiety: 1-Mildly Anxious Agitation: 0-Normal Activity Paroxysmal Sweats: No Perspiration Orientation: 0-Oriented Tacttile Disturbances: 0-None Auditory Disturbances: 0-None Visual Disturbances: 1-Very Mild Sensitivity Headache: 0-None Present CIWA-Ar Total Score: 3 BHS Progress Note (SOAP) Subjective: 69 years old female was admitted on 01/17/20 for alcohol withdrawal sx management treating with librium detox regiment feels better today at breakfast in room social with peers in day room watching TV encourage ms cassidy to discuss aftercare with staff Objective: 01/21/20 10:35 Vital Signs - 24 hr 01/20/20 01/20/20 01/20/20 12:42 16:37 23:38 Temperature 98.4 F 97.1 F L 97.3 F L Pulse Rate 90 85 94 H Respiratory 18 18 18 Rate Blood Pressure 106/60 115/72 120/69 O2 Sat by Pulse 98 96 Oximetry (%) 01/21/20 01/21/20 06:03 08:45 Temperature 97.9 F 99 F Pulse Rate 73 85 Respiratory 20 18 Rate Blood Pressure 98/62 114/75 O2 Sat by Pulse 99 Oximetry (%) Laboratory Tests 01/17/20 01/18/20 01/18/20 18:00 07:50 07:50 WBC 4.2 RBC 2.99 L Hgb 9.2 L Hct 28.2 L D MCV 94.3 MCH 30.8 MCHC 32.6 RDW 15.4 Plt Count 158 MPV 7.3 L D Sodium Potassium Chloride Carbon Dioxide Anion Gap BUN Creatinine Est GFR (CKD-EPI)AfAm Est GFR (CKD-EPI)NonAf Random Glucose Calcium Total Bilirubin AST ALT Alkaline Phosphatase Total Protein Albumin Syphilis Serology Non-reactive COVID-19 ([facility]) Not detected 01/18/20 07:50 WBC RBC Hgb Hct MCV MCH MCHC RDW Plt Count MPV Sodium 141 Potassium 4.5 Chloride 108 H Carbon Dioxide 25 Anion Gap 8 BUN 23.5 H Creatinine 1.2 Est GFR (CKD-EPI)AfAm 54.16 Est GFR (CKD-EPI)NonAf 46.73 Random Glucose 110 H Calcium 8.3 L Total Bilirubin 0.8 AST 31 ALT 34 Alkaline Phosphatase 80 Total Protein 6.4 Albumin 3.3 L Syphilis Serology COVID-19 ([facility]) 01/21/20 10:36 ms cassidy will return to her primary care GI provider following up the prognosis of liver cirrhosis and hepatitis c 01/21/20 10:37 01/21/20 10:56 Assessment: 01/21/20 10:37 alcohol withdrawal Plan: librium regiment
[2020-01-21] MEDS: THIAMINE HCL 100 MG TABLET (FP) PO SCH (14:06)
[2020-01-21] MEDS: ACETAMINOPHEN 325 MG TABLET (FP) PO PRN (16:56)
[2020-01-21] MEDS ORDERED: NICOTINE 14 MG/24 HOURS TOPICAL PATCH TD ONE (17:32)
[2020-01-21] MEDS: LIDOCAINE PATCH REMOVAL MC SCH (22:24)
[2020-01-21] MEDS: MELATONIN 5 MG TABLETS PO PRN (22:25)
[2020-01-22] MEDS ORDERED: chlordiazePOXIDE HCL 10 MG CAPSULE PO ONE (05:00)
[2020-01-22] MEDS: LIPASE/PROTEASE/AMYLASE 36,000 UNIT CAPSULE PO SCH (06:22)
[2020-01-22 09:17] VITALS: BP 107/41; PULSE 94; TEMP 97.1
[2020-01-22] MEDS: FERROUS SO4 325 MG TABLET (FP) PO SCH (10:30)
[2020-01-22] MEDS: THIAMINE HCL 100 MG TABLET (FP) PO SCH (10:30)
[2020-01-22] MEDS: PRENATAL VITAMINS W/ FOLIC ACID TABLET (FP) PO SCH (10:30)
[2020-01-22] MEDS: LIDOCAINE 5% TOPICAL PATCH TP SCH (10:31)
[2020-01-22] MEDS: amLODIPine BESYLATE 10 MG TABLET (FP) PO SCH (10:31)
[2020-01-22] MEDS: NICOTINE 14 MG/24 HOURS TOPICAL PATCH TD SCH (10:31)
[2020-01-22] MEDS: PANTOPRAZOLE 40 MG TABLET PO SCH (10:31)
[2020-01-22] MEDS: LISINOPRIL 20 MG TABLET (FP) PO SCH (10:31)
--- NOTE | 2020-01-22 10:41 | DS ---
[facility] Detox Discharge Summary Admission Date: 01/17/20 Discharge Date: 01/22/20 - History Present History: Alcohol Dependence Additional Comments: 69 years old female was admitted on 01/17/20 for alcohol withdrawal sx management treated with librium detox regiment ms cassidy has completed the librium regiment and is tolerated well General Appearance: Yes: good hygiene, no Distress, mild Tremorous HEENTM: Yes: EOMI, Hearing grossly Normal, Normocephalic, Muffled/Hoarse Voice Respiratory: Yes: Chest Non-Tender, Lungs Clear, Normal Breath Sounds, No Respiratory Distress, No Accessory Muscle Use Neck: Yes: No masses,lesions,Nodules, Trachea in good position Cardiology: Yes: Regular Rhythm, Regular Rate, S1, S2 Abdominal: Yes: Non Tender, Soft Musculoskeletal: Yes: Joint Stiffness (left knee) Extremities: Yes: Non-Tender, Tremors, Other (right IVth and Vth fingers palsy ( ulnar neuropathy vs entrapment syndrome ) per pt x 2 months , s/p fall while intoxicated , went to [facility] and was givne a hand brace which she uses intermittently . No frx noted / reported . Full ROM RIGHT elbow , right wrist) Neurological: Yes: Fully Oriented, Alert, Motor Strength 5/5, Normal Mood/Affect Integumentary: Yes: Warm Pertinent Past History: time for discharge 46 minutes transferred order set from detox to rehab - Physical Exam Results Vital Signs: Vital Signs Temperature 97.1 F L 01/22/20 05:23 Pulse Rate 94 H 01/22/20 05:23 Respiratory Rate 18 01/22/20 05:23 Blood Pressure 107/41 L 01/22/20 05:23 O2 Sat by Pulse Oximetry (%) 98 01/22/20 05:23 Pertinent Admission Physical Exam Findings: alcohol withdrawal Laboratory Tests 01/17/20 01/18/20 01/18/20 18:00 07:50 07:50 WBC 4.2 RBC 2.99 L Hgb 9.2 L Hct 28.2 L D MCV 94.3 MCH 30.8 MCHC 32.6 RDW 15.4 Plt Count 158 MPV 7.3 L D Sodium Potassium Chloride Carbon Dioxide Anion Gap BUN Creatinine Est GFR (CKD-EPI)AfAm Est GFR (CKD-EPI)NonAf Random Glucose Calcium Total Bilirubin AST ALT Alkaline Phosphatase Total Protein Albumin Syphilis Serology Non-reactive COVID-19 ([facility]) Not detected 01/18/20 07:50 WBC RBC Hgb Hct MCV MCH MCHC RDW Plt Count MPV Sodium 141 Potassium 4.5 Chloride 108 H Carbon Dioxide 25 Anion Gap 8 BUN 23.5 H Creatinine 1.2 Est GFR (CKD-EPI)AfAm 54.16 Est GFR (CKD-EPI)NonAf 46.73 Random Glucose 110 H Calcium 8.3 L Total Bilirubin 0.8 AST 31 ALT 34 Alkaline Phosphatase 80 Total Protein 6.4 Albumin 3.3 L Syphilis Serology COVID-19 ([facility]ER) renal insufficient anemia - Treatment Hospital Course: Detox Protocol Followed, Detoxed Safely, Responded well, Discharged Condition Good, Rehab Referral Accepted Patient has Accepted [facility] - Medication Discharge Medications: Ambulatory Orders Lipase/Protease/Amylase [Pranay Alberto 36,000 Units Capsule] 1 each PO TID 08/14/18 Albuterol Sulfate Inhaler - [Ventolin HFA Inhaler -] 2 inh PO Q4H PRN 08/15/18 Gabapentin [Neurontin -] 100 mg PO Q8H 08/15/18 Lisinopril 20 mg PO DAILY 08/17/18 Pantoprazole Sodium [Protonix -] 40 mg PO BID 08/17/18 Amlodipine Besylate [Norvasc -] 10 mg PO DAILY #30 tablet 08/18/18 Meclizine HCl 12.5 mg PO TID PRN 05/24/19 Lactose-Reduced Food [Ensure Plus] 1 bottle TID 01/17/20 Lipase/Protease/Amylase [Pranay Alberto 36,000 Units Capsule] 1 cap PO BID 01/17/20 - Diagnosis (1) Chronic pancreatitis Current Visit: Yes Status: Chronic Qualifiers: Pancreatitis type: drug induced Qualified Code(s): K86.1 - Other chronic pancreatitis; T50.905A - Adverse effect of unspecified drugs, medicaments and biological substances, initial encounter (2) Alcohol dependence with uncomplicated withdrawal Current Visit: Yes Status: Acute (3) Hepatitis C Current Visit: Yes Status: Chronic Qualifiers: Viral hepatitis chronicity: carrier Qualified Code(s): B18.2 - Chronic viral hepatitis C (4) Anemia Current Visit: Yes Status: Chronic Qualifiers: Anemia type: iron deficiency Iron deficiency anemia type: unspecified iron deficiency Qualified Code(s): D50.9 - Iron deficiency anemia, unspecified (5) COPD (chronic obstructive pulmonary disease) Current Visit: Yes Status: Chronic Qualifiers: Chronic bronchitis type: unspecified (6) Cirrhosis of liver Current Visit: Yes Status: Chronic Qualifiers: Hepatic cirrhosis type: alcoholic cirrhosis Ascites presence: without ascites Qualified Code(s): K70.30 - Alcoholic cirrhosis of liver without ascites (7) Essential (primary) hypertension Current Visit: Yes Status: Chronic (8) GERD (gastroesophageal reflux disease) Current Visit: Yes Status: Chronic Qualifiers: Esophagitis presence: esophagitis presence not specified Qualified Code(s): K21.9 - Gastro-esophageal reflux disease without esophagitis (9) Nicotine dependence, uncomplicated Current Visit: Yes Status: Acute Qualifiers: Nicotine product type: cigarettes Qualified Code(s): F17.210 - Nicotine dependence, cigarettes, uncomplicated - AMA Did Patient Leave Against Medical Advice: No CIWA Score - CIWA Score Nausea/Vomitin-No Nausea/No Vomiting Muscle Tremors: 1-None Visible, but [place] Anxiety: 0-No Anxiety, at Ease Agitation: 0-Normal Activity Paroxysmal Sweats: No Perspiration Orientation: 0-Oriented Tacttile Disturbances: 0-None Auditory Disturbances: 0-None Visual Disturbances: 0-None Headache: 0-None Present CIWA-Ar Total Score: 1
== END 2020-01-22 11:16 | disposition other institution (70) | DRG 897 ==
LOC: YASAS 15:57 → Y3N 18:38
PROVIDERS: ADMIT Allergy & Immunology; ATTEND Allergy & Immunology
PROC: HZ2ZZZZ Detoxification Services for Substance Abuse Treatment (ICD-10-PCS; principal; 2020-01-17)
DX: F10.230 Alcohol dependence with withdrawal, uncomplicated (principal); K86.1 Other chronic pancreatitis; F17.210 Nicotine dependence, cigarettes, uncomplicated; D50.9 Iron deficiency anemia, unspecified; I10 Essential (primary) hypertension; J44.9 Chronic obstructive pulmonary disease, unspecified; K70.30 Alcoholic cirrhosis of liver without ascites; B18.2 Chronic viral hepatitis C; M25.662 Stiffness of left knee, not elsewhere classified; N28.9 Disorder of kidney and ureter, unspecified; Z96.642 Presence of left artificial hip joint; Z86.718 Personal history of other venous thrombosis and embolism; Z99.89 Dependence on other enabling machines and devices; T50.905A Adverse effect of unspecified drugs, medicaments and biological substances, initial encounter; Y92.89 Other specified places as the place of occurrence of the external cause
CPT/HCPCS: 36415; 80053; 85027; 86780; Q0162; U0003

== ENCOUNTER 2020-01-22 11:02 | Inpatient (IN) | payer OTHER ==
--- NOTE | 2020-01-22 10:44 | HP ---
[facility] Rehab Assess/Revision - Admission History Admitted to Rehab from: [facility] Date of Admission to Rehab: 01/17/20 - Findings Detox History & Physical reviewed: Yes Concur with findings: Yes Comments/Additional Findings: transferred from detox to rehab admission as per protocol Inpatient Rehab Admission - Rehab Decision to Admit Inpatient rehab admission?: Yes - Initial Determination Are CD services needed?: Yes Free of communicable disease: Yes Not in need of hospitalization: Yes - Rehab Admission Criteria Previous failed treatment: Yes Poor recovery environment: Yes Comorbidities: Yes Lacks judgement: Yes Patient is meeting Inpatient Rehab admission criteria:: Yes
[~2020-01-22 11:02] MED LIST: ACETAMINOPHEN 325 MG TABLET (FP) PO PRN; ALBUTEROL SO4 HFA INHALER IH PRN; IBUPROFEN 400 MG TABLET (FP) PO PRN; LOPERAMIDE HCL 2 MG CAPSULE PO PRN; MAG HYDROX/AL HYDROX/SIMETH 30 ML UNIT-DOSE CUP PO PRN; MAGNESIUM CITRATE 300 ML BOTTLE PO PRN; MAGNESIUM HYDROX 2400MG/30ML ORAL SUSPENSION 30 ML CUP PO PRN; NICOTINE POLACRILEX 2 MG GUM BC PRN; P-EPHED 60MG/TRIPROLIDI 2.5MG TABLET PO PRN; guaiFENesin 200 MG/10 ML 10 ML UNIT-DOSE CUPS PO PRN
[2020-01-22] MEDS ORDERED: PT OWN MED DRAWER 7, Y5N ONE (16:54)
[2020-01-22] MEDS: LIPASE/PROTEASE/AMYLASE 36,000 UNIT CAPSULE PO SCH (16:58)
[2020-01-22] MEDS: MELATONIN 5 MG TABLETS PO SCH (21:24)
[2020-01-22] MEDS: THIAMINE HCL 100 MG TABLET (FP) PO SCH (21:25)
[2020-01-22] MEDS: PANTOPRAZOLE 40 MG TABLET PO SCH (21:25)
[2020-01-23] MEDS: LIPASE/PROTEASE/AMYLASE 36,000 UNIT CAPSULE PO SCH ×2 (07:09→16:30)
[2020-01-23] MEDS ORDERED: PT OWN MED DRAWER 7, Y5N ONE ×2 (08:30→16:30)
[2020-01-23] MEDS: PRENATAL VITAMINS W/ FOLIC ACID TABLET (FP) PO SCH (09:18)
[2020-01-23] MEDS: PANTOPRAZOLE 40 MG TABLET PO SCH ×2 (09:18→21:27)
[2020-01-23] MEDS: LISINOPRIL 20 MG TABLET (FP) PO SCH (09:18)
[2020-01-23] MEDS: amLODIPine BESYLATE 10 MG TABLET (FP) PO SCH (09:18)
[2020-01-23] MEDS: NICOTINE 14 MG/24 HOURS TOPICAL PATCH TD SCH (09:19)
[2020-01-23] MEDS: LIDOCAINE 5% TOPICAL PATCH TP SCH (11:44)
--- NOTE | 2020-01-23 14:28 | PN ---
S Progress Note Note: Pt is a 69 y/o female admitted to rehab from [address] yesterday. Pt reports she has primary care with [facility]. PMHx:HTN GERD/Pancreatitis Liver Cirrhosis Vital Signs - 24 hr 01/22/20 01/22/20 01/23/20 14:52 21:22 06:30 Temperature 97.7 F Pulse Rate 82 Respiratory 16 Rate Blood Pressure 120/76 O2 Sat by Pulse 100 98 100 Oximetry (%) 01/23/20 09:21 Temperature Pulse Rate 90 Respiratory Rate Blood Pressure 127/73 O2 Sat by Pulse Oximetry (%) Alert o x 3 nad seen in bed but sat up while provider was talking to her. extremities:no edema,dry; skin intact. s/p detox cont rehab maintain safety
[2020-01-23] MEDS: THIAMINE HCL 100 MG TABLET (FP) PO SCH (21:26)
[2020-01-23] MEDS: MELATONIN 5 MG TABLETS PO SCH (21:26)
[2020-01-23] MEDS ORDERED: LIDOCAINE PATCH REMOVAL MC SCH (22:00)
[2020-01-24] MEDS: LIPASE/PROTEASE/AMYLASE 36,000 UNIT CAPSULE PO SCH (06:23)
[2020-01-24 06:51] VITALS: TEMP 97.5
[2020-01-24] MEDS ORDERED: PT OWN MED DRAWER 7, Y5N ONE (07:58)
[2020-01-24 09:13] VITALS: BP 124/75; PULSE 89
[2020-01-24] MEDS: PANTOPRAZOLE 40 MG TABLET PO SCH (09:36)
[2020-01-24] MEDS: PRENATAL VITAMINS W/ FOLIC ACID TABLET (FP) PO SCH (09:36)
[2020-01-24] MEDS: LIDOCAINE 5% TOPICAL PATCH TP SCH (09:36)
[2020-01-24] MEDS: amLODIPine BESYLATE 10 MG TABLET (FP) PO SCH (09:36)
[2020-01-24] MEDS: LISINOPRIL 20 MG TABLET (FP) PO SCH (09:36)
[2020-01-24] MEDS: NICOTINE 14 MG/24 HOURS TOPICAL PATCH TD SCH (09:37)
--- NOTE | 2020-01-24 14:45 | DS ---
[facility] Rehab Discharge Summary - [facility] Rehab Discharge Summary Admission Date: 01/22/20 Discharge Date: 01/24/20 - History Present History: Alcohol dependence Pertinent Past History: hx Vertigo Hep C Anemia COPD GERD Cirrhosis of Liver Chronic Pancreatitis HTN - Discharge Physical Exam Vital Signs: Vital Signs Temperature 97.5 F L 01/24/20 06:21 Pulse Rate 89 01/24/20 08:30 Respiratory Rate 17 01/24/20 08:30 Blood Pressure 124/75 01/24/20 08:30 O2 Sat by Pulse Oximetry (%) 100 01/24/20 06:21 Alert o x 3 nad;no resp difficulty oob ambulating with steady gait - Treatment Discharge Condition: Discharge condition good Hospital Course: Pt admitted to rehab from detox on 01/22/20 and declined to continue tx today. Pt requested to be on a co-ed unit and does not want to be on all female unit. Apparently no bed available in co-ed unit and pt preferred to leave tx. Pt has been referred to [facility] for CD aftercare follow up. - Medication Discharge Medications: Ambulatory Orders Albuterol Sulfate Inhaler - [Ventolin HFA Inhaler -] 2 inh PO Q4H PRN 08/15/18 Gabapentin [Neurontin -] 100 mg PO Q8H 08/15/18 Lisinopril 20 mg PO DAILY 08/17/18 Pantoprazole Sodium [Protonix -] 40 mg PO BID 08/17/18 Amlodipine Besylate [Norvasc -] 10 mg PO DAILY #30 tablet 08/18/18 Meclizine HCl 12.5 mg PO TID PRN 05/24/19 Lactose-Reduced Food [Ensure Plus] 1 bottle TID 01/17/20 Lipase/Protease/Amylase [[place] Dr 36,000 Units Capsule] 1 cap PO BID 01/17/20 - Medication-Assisted Treatment (MAT) Medication-Assisted Treatment (MAT): No - Discharge Instructions Diet, activity, other medical instructions: Diet:GABRIEL Activity: oob ad cely Other medical instructions:follow up with [facility] as scheduled. Follow up with PCP at [facility] for medical management. - Diagnosis (1) Chronic pancreatitis Status: Chronic Qualifiers: Pancreatitis type: unspecified pancreatitis type Qualified Code(s): K86.1 - Other chronic pancreatitis (2) Hepatitis C Status: Chronic Qualifiers: Viral hepatitis chronicity: carrier Qualified Code(s): B18.2 - Chronic viral hepatitis C (3) Nicotine dependence, uncomplicated Status: Chronic Qualifiers: Nicotine product type: cigarettes Qualified Code(s): F17.210 - Nicotine dependence, cigarettes, uncomplicated (4) Essential (primary) hypertension Status: Chronic (5) Alcohol dependence Status: Chronic Qualifiers: Substance use status: uncomplicated Qualified Code(s): F10.20 - Alcohol dependence, uncomplicated (6) COPD (chronic obstructive pulmonary disease) Status: Chronic Qualifiers: Chronic bronchitis type: unspecified (7) GERD (gastroesophageal reflux disease) Status: Chronic Qualifiers: Esophagitis presence: esophagitis presence not specified Qualified Code(s): K21.9 - Gastro-esophageal reflux disease without esophagitis (8) Cirrhosis of liver Status: Chronic Qualifiers: Hepatic cirrhosis type: alcoholic cirrhosis Ascites presence: without ascites Qualified Code(s): K70.30 - Alcoholic cirrhosis of liver without ascites - Follow-up Referral Minutes to complete discharge: 20 - AMA Did Patient Leave Against Medical Advice: Yes Additional Comments: Pt reports she has own medications at home and ghas primary care with [place], [place].
== END 2020-01-24 15:20 | disposition left against medical advice (07) | DRG 894 ==
LOC: YASAS 11:02 → Y3E 11:03
PROVIDERS: ADMIT Allergy & Immunology; ATTEND Allergy & Immunology
PROC: HZ42ZZZ Group Counseling for Substance Abuse Treatment, Cognitive-Behavioral (ICD-10-PCS; principal; 2020-01-22)
DX: F10.20 Alcohol dependence, uncomplicated (principal); K86.1 Other chronic pancreatitis; F17.210 Nicotine dependence, cigarettes, uncomplicated; D64.9 Anemia, unspecified; I10 Essential (primary) hypertension; J44.9 Chronic obstructive pulmonary disease, unspecified; K70.30 Alcoholic cirrhosis of liver without ascites; K21.9 Gastro-esophageal reflux disease without esophagitis; B18.2 Chronic viral hepatitis C

== ENCOUNTER 2020-06-04 11:04 | Inpatient (IN) | payer OTHER ==
[2020-06-04 12:07] VITALS: BMI 21.1
[2020-06-04] MEDS ORDERED: METHOCARBAMOL 500 MG TABLET PO PRN (13:28)
[2020-06-04] MEDS ORDERED: IBUPROFEN 400 MG TABLET (FP) PO PRN (13:28)
[2020-06-04] MEDS ORDERED: MAG HYDROX/AL HYDROX/SIMETH 30 ML UNIT-DOSE CUP PO PRN (13:28)
[2020-06-04] MEDS ORDERED: MENTHOL/PHENOL 1 EACH UD MM PRN (13:28)
[2020-06-04] MEDS ORDERED: ONDANSETRON *ODT* 4 MG TABLET SL PRN (13:28)
[2020-06-04] MEDS ORDERED: MAGNESIUM HYDROX 2400MG/30ML ORAL SUSPENSION 30 ML CUP PO PRN (13:28)
[2020-06-04] MEDS ORDERED: MAGNESIUM CITRATE 300 ML BOTTLE PO PRN (13:28)
[2020-06-04] MEDS ORDERED: BISMUTH SUBSALICYLATE 262 MG/15 ML BTL PO PRN (13:28)
[2020-06-04] MEDS ORDERED: ACETAMINOPHEN 325 MG TABLET (FP) PO PRN ×2 (13:28)
[2020-06-04] MEDS ORDERED: NICOTINE POLACRILEX 2 MG GUM BUC PRN (13:28)
[2020-06-04] MEDS ORDERED: chlordiazePOXIDE HCL 25 MG CAPSULE PO PRN (13:28)
[2020-06-04] MEDS ORDERED: ALBUTEROL SO4 HFA INHALER IH PRN (13:30)
[2020-06-04] MEDS: hydrOXYzine PAMOATE 25 MG CAPSULE (FP) PO SCH ×3 (14:37→22:06)
[2020-06-04] MEDS: chlordiazePOXIDE HCL 25 MG CAPSULE PO SCH ×4 (14:37→22:06)
[2020-06-04 17:10] LABS: HEMATOCRIT 31.3 % (32.4-45.2); HEMOGLOBIN 10.2 GM/dL (10.7-15.3); MCH 30.5 pg (25.7-33.7); MCHC 32.7 g/dl (32.0-36.0); MEAN CELL VOLUME 93.2 fl (80-96); MEAN PLT VOLUME 7.6 fl (7.5-11.1); PLATELET COUNT 166 K/MM3 (134-434); RBC 3.36 M/mm3 (3.60-5.2); RDW 17.8 % (11.6-15.6); WHITE BLOOD COUNT 7.5 K/mm3 (4.0-10.0)
[2020-06-04 17:36] LABS: CALCIUM 8.7 mg/dL (8.5-10.1)
[2020-06-04 17:37] LABS: BLOOD UREA NITROGEN 10.7 mg/dL (7-18)
[2020-06-04 17:40] LABS: CREATININE 1.1 mg/dL (0.55-1.3)
[2020-06-04 17:42] LABS: BILIRUBIN,TOTAL 1.2 mg/dL (0.2-1); TOT PROT 7.9 g/dl (6.4-8.2)
[2020-06-04] MEDS: THIAMINE HCL 100 MG TABLET (FP) PO SCH (22:06)
[2020-06-04] MEDS: PANTOPRAZOLE 40 MG TABLET PO SCH (22:06)
[2020-06-04] MEDS: MELATONIN 5 MG TABLETS PO SCH (22:06)
[2020-06-05] MEDS: chlordiazePOXIDE HCL 25 MG CAPSULE PO SCH ×4 (06:06→22:29)
[2020-06-05] MEDS: hydrOXYzine PAMOATE 25 MG CAPSULE (FP) PO SCH ×5 (06:06→22:28)
[2020-06-05] MEDS: amLODIPine BESYLATE 10 MG TABLET (FP) PO SCH (10:40)
[2020-06-05] MEDS: PRENATAL VITAMINS W/ FOLIC ACID TABLET (FP) PO SCH (10:40)
[2020-06-05] MEDS: NICOTINE 14 MG/24 HOURS TOPICAL PATCH TD SCH (10:40)
[2020-06-05] MEDS: LISINOPRIL 20 MG TABLET PO SCH (10:40)
[2020-06-05] MEDS: PANTOPRAZOLE 40 MG TABLET PO SCH ×2 (10:40→22:41)
[2020-06-05] MEDS ORDERED: LIDOCAINE VISCOUS 2% ORAL/TOP 15 ML UNIT-DOSE CUP MM PRN (17:24)
[2020-06-05] MEDS: AMOXICILLIN 500 MG CAPSULE (FP) PO SCH (22:28)
[2020-06-05] MEDS: MELATONIN 5 MG TABLETS PO SCH (22:29)
[2020-06-05] MEDS: THIAMINE HCL 100 MG TABLET (FP) PO SCH (22:29)
[2020-06-05] MEDS: CHLORHEXIDINE GLUCONATE 0.12% 15ML CUP MM SCH (22:39)
[2020-06-06] MEDS ORDERED: chlordiazePOXIDE HCL 10 MG CAPSULE PO PRN
[2020-06-06] MEDS: hydrOXYzine PAMOATE 25 MG CAPSULE (FP) PO SCH ×5 (06:16→22:02)
[2020-06-06] MEDS: chlordiazePOXIDE HCL 10 MG CAPSULE PO SCH ×4 (06:16→22:02)
[2020-06-06] MEDS: AMOXICILLIN 500 MG CAPSULE (FP) PO SCH ×3 (06:16→22:02)
[2020-06-06] MEDS: PRENATAL VITAMINS W/ FOLIC ACID TABLET (FP) PO SCH (10:13)
[2020-06-06] MEDS: amLODIPine BESYLATE 10 MG TABLET (FP) PO SCH (10:13)
[2020-06-06] MEDS: LISINOPRIL 20 MG TABLET PO SCH (10:13)
[2020-06-06] MEDS: NICOTINE 14 MG/24 HOURS TOPICAL PATCH TD SCH (10:13)
[2020-06-06] MEDS: PANTOPRAZOLE 40 MG TABLET PO SCH ×2 (10:22→22:03)
[2020-06-06] MEDS: CHLORHEXIDINE GLUCONATE 0.12% 15ML CUP MM SCH ×2 (11:19→22:02)
[2020-06-06] MEDS: LIPASE/PROTEASE/AMYLASE 36,000 UNIT CAPSULE PO SCH ×2 (13:23→17:26)
[2020-06-06] MEDS: MELATONIN 5 MG TABLETS PO SCH (22:02)
[2020-06-06] MEDS: THIAMINE HCL 100 MG TABLET (FP) PO SCH (22:02)
[2020-06-07] MEDS: AMOXICILLIN 500 MG CAPSULE (FP) PO SCH ×3 (05:38→22:19)
[2020-06-07] MEDS: hydrOXYzine PAMOATE 25 MG CAPSULE (FP) PO SCH ×5 (05:38→22:20)
[2020-06-07] MEDS: chlordiazePOXIDE HCL 10 MG CAPSULE PO SCH ×2 (05:38→17:38)
[2020-06-07] MEDS: LIPASE/PROTEASE/AMYLASE 36,000 UNIT CAPSULE PO SCH ×3 (07:34→17:38)
[2020-06-07] MEDS: amLODIPine BESYLATE 10 MG TABLET (FP) PO SCH (10:24)
[2020-06-07] MEDS: NICOTINE 14 MG/24 HOURS TOPICAL PATCH TD SCH (10:24)
[2020-06-07] MEDS: PRENATAL VITAMINS W/ FOLIC ACID TABLET (FP) PO SCH (10:25)
[2020-06-07] MEDS: PANTOPRAZOLE 40 MG TABLET PO SCH ×2 (10:25→22:20)
[2020-06-07] MEDS: LISINOPRIL 20 MG TABLET PO SCH (10:25)
[2020-06-07] MEDS: CHLORHEXIDINE GLUCONATE 0.12% 15ML CUP MM SCH ×2 (10:25→22:20)
[2020-06-07] MEDS ORDERED: LIDOCAINE 5% TOPICAL PATCH TP ONE (10:29)
[2020-06-07] MEDS ORDERED: LIDOCAINE PATCH REMOVAL MC SCH (22:00)
[2020-06-07] MEDS: MELATONIN 5 MG TABLETS PO SCH (22:19)
[2020-06-07] MEDS: THIAMINE HCL 100 MG TABLET (FP) PO SCH (22:20)
[2020-06-08] MEDS ORDERED: chlordiazePOXIDE HCL 10 MG CAPSULE PO ONE (05:00)
[2020-06-08] MEDS: AMOXICILLIN 500 MG CAPSULE (FP) PO SCH (05:37)
[2020-06-08] MEDS: hydrOXYzine PAMOATE 25 MG CAPSULE (FP) PO SCH ×2 (05:37→09:03)
[2020-06-08 06:21] VITALS: BP 139/77; PULSE 71; TEMP 96.8
[2020-06-08] MEDS: amLODIPine BESYLATE 10 MG TABLET (FP) PO SCH (09:02)
[2020-06-08] MEDS: LIPASE/PROTEASE/AMYLASE 36,000 UNIT CAPSULE PO SCH (09:02)
[2020-06-08] MEDS: LISINOPRIL 20 MG TABLET PO SCH (09:02)
[2020-06-08] MEDS: NICOTINE 14 MG/24 HOURS TOPICAL PATCH TD SCH (09:03)
[2020-06-08] MEDS: PANTOPRAZOLE 40 MG TABLET PO SCH (09:03)
== END 2020-06-08 09:06 | disposition other institution (70) | DRG 897 ==
LOC: YASAS 11:04 → Y6N 12:54
PROVIDERS: ADMIT Allergy & Immunology; ATTEND Allergy & Immunology
PROC: HZ2ZZZZ Detoxification Services for Substance Abuse Treatment (ICD-10-PCS; principal; 2020-06-04)
DX: F10.230 Alcohol dependence with withdrawal, uncomplicated (principal); K86.1 Other chronic pancreatitis; F14.10 Cocaine abuse, uncomplicated; F17.210 Nicotine dependence, cigarettes, uncomplicated; F19.24 Other psychoactive substance dependence with psychoactive substance-induced mood disorder; D64.9 Anemia, unspecified; G47.00 Insomnia, unspecified; I10 Essential (primary) hypertension; J44.9 Chronic obstructive pulmonary disease, unspecified; K70.30 Alcoholic cirrhosis of liver without ascites; K21.9 Gastro-esophageal reflux disease without esophagitis; B18.2 Chronic viral hepatitis C; K86.81 Exocrine pancreatic insufficiency; R73.9 Hyperglycemia, unspecified; M16.12 Unilateral primary osteoarthritis, left hip; Z96.642 Presence of left artificial hip joint; R63.4 Abnormal weight loss; Z68.21 Body mass index [BMI] 21.0-21.9, adult; Z86.718 Personal history of other venous thrombosis and embolism; Z99.89 Dependence on other enabling machines and devices
CPT/HCPCS: 36415; 80053; 82962; 85027; 86780; C9803; U0003

== ENCOUNTER 2020-06-08 09:12 | Inpatient (IN) | payer OTHER ==
[2020-06-08] MEDS ORDERED: NICOTINE POLACRILEX 2 MG GUM BC PRN (10:56)
[2020-06-08] MEDS ORDERED: LOPERAMIDE HCL 2 MG CAPSULE PO PRN (10:56)
[2020-06-08] MEDS ORDERED: ACETAMINOPHEN 325 MG TABLET (FP) PO PRN (10:56)
[2020-06-08] MEDS ORDERED: IBUPROFEN 400 MG TABLET (FP) PO PRN (10:56)
[2020-06-08] MEDS ORDERED: MAGNESIUM CITRATE 300 ML BOTTLE PO PRN (10:56)
[2020-06-08] MEDS ORDERED: MAGNESIUM HYDROX 2400MG/30ML ORAL SUSPENSION 30 ML CUP PO PRN (10:56)
[2020-06-08] MEDS ORDERED: guaiFENesin 200 MG/10 ML 10 ML UNIT-DOSE CUPS PO PRN (10:56)
[2020-06-08] MEDS ORDERED: ALBUTEROL SO4 HFA INHALER IH PRN (10:59)
[2020-06-08] MEDS ORDERED: LIDOCAINE VISCOUS 2% ORAL/TOP 20 ML UNIT-DOSE CUP MM PRN (11:01)
[2020-06-08] MEDS: LIPASE/PROTEASE/AMYLASE 36,000 UNIT CAPSULE PO SCH ×2 (13:01→16:50)
[2020-06-08] MEDS ORDERED: hydrOXYzine PAMOATE 25 MG CAPSULE (FP) PO ONE (14:32)
[2020-06-08] MEDS: MELATONIN 5 MG TABLETS PO SCH (21:18)
[2020-06-08] MEDS: THIAMINE HCL 100 MG TABLET (FP) PO SCH (21:18)
[2020-06-08] MEDS: LIDOCAINE PATCH REMOVAL MC SCH (21:18)
[2020-06-08] MEDS ORDERED: PANTOPRAZOLE 40 MG TABLET PO SCH (22:00)
[2020-06-09] MEDS: LIPASE/PROTEASE/AMYLASE 36,000 UNIT CAPSULE PO SCH ×3 (07:29→16:46)
[2020-06-09] MEDS: PANTOPRAZOLE 40 MG TABLET PO SCH ×2 (07:29→17:17)
[2020-06-09] MEDS: LIDOCAINE 5% TOPICAL PATCH TP SCH (09:57)
[2020-06-09] MEDS: amLODIPine BESYLATE 10 MG TABLET (FP) PO SCH (09:58)
[2020-06-09] MEDS: NICOTINE 7 MG/24 HOURS TOPICAL PATCH TD SCH (09:58)
[2020-06-09] MEDS: PRENATAL VITAMINS W/ FOLIC ACID TABLET (FP) PO SCH (09:58)
[2020-06-09] MEDS: LISINOPRIL 20 MG TABLET PO SCH (10:50)
[2020-06-09] MEDS: hydrOXYzine PAMOATE 50 MG CAPSULE (FP) PO PRN (19:39)
[2020-06-09] MEDS: THIAMINE HCL 100 MG TABLET (FP) PO SCH (21:21)
[2020-06-09] MEDS: MELATONIN 5 MG TABLETS PO SCH (21:21)
[2020-06-09] MEDS: LIDOCAINE PATCH REMOVAL MC SCH (21:22)
[2020-06-10] MEDS: PANTOPRAZOLE 40 MG TABLET PO SCH ×2 (06:00→17:03)
[2020-06-10] MEDS: MAG HYDROX/AL HYDROX/SIMETH 30 ML UNIT-DOSE CUP PO PRN (06:14)
[2020-06-10] MEDS: LIPASE/PROTEASE/AMYLASE 36,000 UNIT CAPSULE PO SCH ×3 (07:24→16:34)
[2020-06-10] MEDS: amLODIPine BESYLATE 10 MG TABLET (FP) PO SCH (10:20)
[2020-06-10] MEDS: LIDOCAINE 5% TOPICAL PATCH TP SCH (10:20)
[2020-06-10] MEDS: hydrOXYzine PAMOATE 50 MG CAPSULE (FP) PO PRN (10:20)
[2020-06-10] MEDS: NICOTINE 7 MG/24 HOURS TOPICAL PATCH TD SCH (10:20)
[2020-06-10] MEDS: PRENATAL VITAMINS W/ FOLIC ACID TABLET (FP) PO SCH (10:21)
[2020-06-10] MEDS: LISINOPRIL 20 MG TABLET PO SCH (10:22)
[2020-06-10] MEDS: LIDOCAINE PATCH REMOVAL MC SCH (21:27)
[2020-06-10] MEDS: THIAMINE HCL 100 MG TABLET (FP) PO SCH (21:27)
[2020-06-10] MEDS: MELATONIN 5 MG TABLETS PO SCH (21:27)
[2020-06-11] MEDS: PANTOPRAZOLE 40 MG TABLET PO SCH ×2 (06:17→17:13)
[2020-06-11] MEDS: LIPASE/PROTEASE/AMYLASE 36,000 UNIT CAPSULE PO SCH ×3 (07:22→16:54)
[2020-06-11] MEDS: NICOTINE 7 MG/24 HOURS TOPICAL PATCH TD SCH (10:21)
[2020-06-11] MEDS: PRENATAL VITAMINS W/ FOLIC ACID TABLET (FP) PO SCH (10:21)
[2020-06-11] MEDS: amLODIPine BESYLATE 10 MG TABLET (FP) PO SCH (10:22)
[2020-06-11] MEDS: LISINOPRIL 20 MG TABLET PO SCH (10:22)
[2020-06-11] MEDS: LIDOCAINE 5% TOPICAL PATCH TP SCH (10:24)
[2020-06-11] MEDS: MELATONIN 5 MG TABLETS PO SCH (21:18)
[2020-06-11] MEDS: THIAMINE HCL 100 MG TABLET (FP) PO SCH (21:18)
[2020-06-11] MEDS: MAG HYDROX/AL HYDROX/SIMETH 30 ML UNIT-DOSE CUP PO PRN (21:18)
[2020-06-11] MEDS: LIDOCAINE PATCH REMOVAL MC SCH (21:19)
[2020-06-12] MEDS: PANTOPRAZOLE 40 MG TABLET PO SCH ×2 (06:11→17:08)
[2020-06-12] MEDS: LIPASE/PROTEASE/AMYLASE 36,000 UNIT CAPSULE PO SCH ×3 (07:04→16:32)
[2020-06-12] MEDS: amLODIPine BESYLATE 10 MG TABLET (FP) PO SCH (10:10)
[2020-06-12] MEDS: hydrOXYzine PAMOATE 50 MG CAPSULE (FP) PO PRN (10:10)
[2020-06-12] MEDS: PRENATAL VITAMINS W/ FOLIC ACID TABLET (FP) PO SCH (10:10)
[2020-06-12] MEDS: LISINOPRIL 20 MG TABLET PO SCH (10:10)
[2020-06-12] MEDS: NICOTINE 7 MG/24 HOURS TOPICAL PATCH TD SCH (10:11)
[2020-06-12] MEDS: LIDOCAINE 5% TOPICAL PATCH TP SCH (10:12)
[2020-06-12] MEDS: MAG HYDROX/AL HYDROX/SIMETH 30 ML UNIT-DOSE CUP PO PRN (11:09)
[2020-06-12] MEDS: THIAMINE HCL 100 MG TABLET (FP) PO SCH (21:17)
[2020-06-12] MEDS: MELATONIN 5 MG TABLETS PO SCH (21:18)
[2020-06-12] MEDS: LIDOCAINE PATCH REMOVAL MC SCH (21:18)
[2020-06-13] MEDS ORDERED: PT OWN MED DRAWER 7, Y5N ONE ×3 (03:13→16:47)
[2020-06-13] MEDS: MAG HYDROX/AL HYDROX/SIMETH 30 ML UNIT-DOSE CUP PO PRN (05:57)
[2020-06-13] MEDS: PANTOPRAZOLE 40 MG TABLET PO SCH ×2 (05:58→17:09)
[2020-06-13] MEDS: LIPASE/PROTEASE/AMYLASE 36,000 UNIT CAPSULE PO SCH ×3 (07:12→16:47)
[2020-06-13] MEDS: PRENATAL VITAMINS W/ FOLIC ACID TABLET (FP) PO SCH (10:17)
[2020-06-13] MEDS: NICOTINE 7 MG/24 HOURS TOPICAL PATCH TD SCH (10:17)
[2020-06-13] MEDS: LISINOPRIL 20 MG TABLET PO SCH (10:17)
[2020-06-13] MEDS: amLODIPine BESYLATE 10 MG TABLET (FP) PO SCH (10:17)
[2020-06-13] MEDS: hydrOXYzine PAMOATE 50 MG CAPSULE (FP) PO PRN ×2 (10:18→21:26)
[2020-06-13] MEDS: LIDOCAINE 5% TOPICAL PATCH TP SCH (10:18)
[2020-06-13] MEDS: THIAMINE HCL 100 MG TABLET (FP) PO SCH (21:26)
[2020-06-13] MEDS: MELATONIN 5 MG TABLETS PO SCH (21:26)
[2020-06-13] MEDS: METHYL SALICYLATE/MENTHOL OINT 30 GM TUBE TP SCH (21:27)
[2020-06-14] MEDS: PANTOPRAZOLE 40 MG TABLET PO SCH ×2 (06:37→17:54)
[2020-06-14] MEDS: LIPASE/PROTEASE/AMYLASE 36,000 UNIT CAPSULE PO SCH ×3 (07:02→16:47)
[2020-06-14] MEDS: MAG HYDROX/AL HYDROX/SIMETH 30 ML UNIT-DOSE CUP PO PRN (07:04)
[2020-06-14] MEDS: LISINOPRIL 20 MG TABLET PO SCH (10:58)
[2020-06-14] MEDS: hydrOXYzine PAMOATE 50 MG CAPSULE (FP) PO PRN ×2 (10:58→21:36)
[2020-06-14] MEDS: amLODIPine BESYLATE 10 MG TABLET (FP) PO SCH (10:58)
[2020-06-14] MEDS: PRENATAL VITAMINS W/ FOLIC ACID TABLET (FP) PO SCH (10:59)
[2020-06-14] MEDS: NICOTINE 7 MG/24 HOURS TOPICAL PATCH TD SCH (10:59)
[2020-06-14] MEDS: METHYL SALICYLATE/MENTHOL OINT 30 GM TUBE TP SCH ×2 (10:59→21:36)
[2020-06-14] MEDS ORDERED: PT OWN MED DRAWER 7, Y5N ONE (11:02)
[2020-06-14] MEDS: THIAMINE HCL 100 MG TABLET (FP) PO SCH (21:36)
[2020-06-14] MEDS: MELATONIN 5 MG TABLETS PO SCH (21:36)
[2020-06-15] MEDS: PANTOPRAZOLE 40 MG TABLET PO SCH ×2 (06:28→17:00)
[2020-06-15] MEDS: LIPASE/PROTEASE/AMYLASE 36,000 UNIT CAPSULE PO SCH ×3 (08:08→16:58)
[2020-06-15] MEDS: amLODIPine BESYLATE 10 MG TABLET (FP) PO SCH (10:38)
[2020-06-15] MEDS: LISINOPRIL 20 MG TABLET PO SCH (10:38)
[2020-06-15] MEDS: hydrOXYzine PAMOATE 50 MG CAPSULE (FP) PO PRN ×2 (10:38→21:46)
[2020-06-15] MEDS: PRENATAL VITAMINS W/ FOLIC ACID TABLET (FP) PO SCH (10:39)
[2020-06-15] MEDS: NICOTINE 7 MG/24 HOURS TOPICAL PATCH TD SCH (10:40)
[2020-06-15] MEDS: METHYL SALICYLATE/MENTHOL OINT 30 GM TUBE TP SCH ×2 (10:41→21:47)
[2020-06-15] MEDS: MELATONIN 5 MG TABLETS PO SCH (21:46)
[2020-06-15] MEDS: THIAMINE HCL 100 MG TABLET (FP) PO SCH (21:46)
[2020-06-16] MEDS: PANTOPRAZOLE 40 MG TABLET PO SCH ×2 (06:16→17:12)
[2020-06-16] MEDS: MAG HYDROX/AL HYDROX/SIMETH 30 ML UNIT-DOSE CUP PO PRN (06:16)
[2020-06-16] MEDS: LIPASE/PROTEASE/AMYLASE 36,000 UNIT CAPSULE PO SCH ×3 (07:20→16:45)
[2020-06-16] MEDS: PRENATAL VITAMINS W/ FOLIC ACID TABLET (FP) PO SCH (09:58)
[2020-06-16] MEDS: LISINOPRIL 20 MG TABLET PO SCH (09:58)
[2020-06-16] MEDS: hydrOXYzine PAMOATE 50 MG CAPSULE (FP) PO PRN ×2 (09:58→21:13)
[2020-06-16] MEDS: NICOTINE 7 MG/24 HOURS TOPICAL PATCH TD SCH (09:58)
[2020-06-16] MEDS: amLODIPine BESYLATE 10 MG TABLET (FP) PO SCH (09:58)
[2020-06-16] MEDS: METHYL SALICYLATE/MENTHOL OINT 30 GM TUBE TP SCH ×2 (09:58→21:14)
[2020-06-16] MEDS: MELATONIN 5 MG TABLETS PO SCH (21:13)
[2020-06-16] MEDS: THIAMINE HCL 100 MG TABLET (FP) PO SCH (21:13)
[2020-06-17] MEDS ORDERED: PT OWN MED DRAWER 7, Y5N ONE ×2 (03:47→10:58)
[2020-06-17] MEDS: PANTOPRAZOLE 40 MG TABLET PO SCH ×2 (06:23→17:13)
[2020-06-17] MEDS: LIPASE/PROTEASE/AMYLASE 36,000 UNIT CAPSULE PO SCH ×3 (07:01→16:53)
[2020-06-17] MEDS: METHYL SALICYLATE/MENTHOL OINT 30 GM TUBE TP SCH ×2 (10:47→21:21)
[2020-06-17] MEDS: NICOTINE 7 MG/24 HOURS TOPICAL PATCH TD SCH (10:48)
[2020-06-17] MEDS: amLODIPine BESYLATE 10 MG TABLET (FP) PO SCH (10:48)
[2020-06-17] MEDS: LISINOPRIL 20 MG TABLET PO SCH (10:49)
[2020-06-17] MEDS: PRENATAL VITAMINS W/ FOLIC ACID TABLET (FP) PO SCH (10:49)
[2020-06-17] MEDS: NICOTINE 14 MG/24 HOURS TOPICAL PATCH TD SCH (10:59)
[2020-06-17] MEDS: MAG HYDROX/AL HYDROX/SIMETH 30 ML UNIT-DOSE CUP PO PRN (12:07)
[2020-06-17] MEDS: MELATONIN 5 MG TABLETS PO SCH (21:20)
[2020-06-17] MEDS: THIAMINE HCL 100 MG TABLET (FP) PO SCH (21:20)
[2020-06-17] MEDS: hydrOXYzine PAMOATE 50 MG CAPSULE (FP) PO PRN (21:21)
[2020-06-18] MEDS: PANTOPRAZOLE 40 MG TABLET PO SCH (06:31)
[2020-06-18 07:01] VITALS: BP 113/77; PULSE 76; TEMP 97.9
[2020-06-18] MEDS: LIPASE/PROTEASE/AMYLASE 36,000 UNIT CAPSULE PO SCH (07:06)
[2020-06-18] MEDS: amLODIPine BESYLATE 10 MG TABLET (FP) PO SCH (09:23)
[2020-06-18] MEDS: LISINOPRIL 20 MG TABLET PO SCH (09:23)
[2020-06-18] MEDS: NICOTINE 14 MG/24 HOURS TOPICAL PATCH TD SCH (09:23)
[2020-06-18] MEDS: METHYL SALICYLATE/MENTHOL OINT 30 GM TUBE TP SCH (09:23)
[2020-06-18] MEDS: PRENATAL VITAMINS W/ FOLIC ACID TABLET (FP) PO SCH (09:23)
== END 2020-06-18 09:35 | disposition home or self-care (01) | DRG 895 ==
LOC: YASAS 09:12 → Y3W 09:13
PROVIDERS: ADMIT Allergy & Immunology; ATTEND Allergy & Immunology
PROC: HZ42ZZZ Group Counseling for Substance Abuse Treatment, Cognitive-Behavioral (ICD-10-PCS; principal; 2020-06-08)
DX: F10.20 Alcohol dependence, uncomplicated (principal); K86.1 Other chronic pancreatitis; D64.9 Anemia, unspecified; I10 Essential (primary) hypertension; J42 Unspecified chronic bronchitis; B18.2 Chronic viral hepatitis C; K21.9 Gastro-esophageal reflux disease without esophagitis; K70.30 Alcoholic cirrhosis of liver without ascites; Z96.642 Presence of left artificial hip joint; Z99.89 Dependence on other enabling machines and devices
CPT/HCPCS: 82962

== ENCOUNTER 2022-04-11 12:50 | Inpatient (IN) | payer OTHER ==
[2022-04-11 14:34] VITALS: BMI 20.1
[2022-04-11] MEDS ORDERED: BENZOCAINE/MENTHOL (CHLORASEPTIC ) LOZENGE MM PRN (14:56)
[2022-04-11] MEDS ORDERED: NICOTINE 10 MG CARTRIDGE (INHALER) IH PRN (14:56)
[2022-04-11] MEDS ORDERED: MAGNESIUM HYDROX 2400MG/30ML ORAL SUSPENSION 30 ML CUP PO PRN (14:56)
[2022-04-11] MEDS ORDERED: LOPERAMIDE HCL 2 MG CAPSULE PO PRN (14:56)
[2022-04-11] MEDS ORDERED: ACETAMINOPHEN 325 MG TABLET (FP) PO PRN ×2 (14:56)
[2022-04-11] MEDS ORDERED: ONDANSETRON *ODT* 4 MG TABLET SL PRN (14:56)
[2022-04-11] MEDS ORDERED: IBUPROFEN 400 MG TABLET (FP) PO PRN (14:56)
[2022-04-11] MEDS ORDERED: MAG HYDROX/AL HYDROX/SIMETH 30 ML UNIT-DOSE CUP PO PRN (14:56)
[2022-04-11] MEDS ORDERED: hydrOXYzine PAMOATE 25 MG CAPSULE (FP) PO PRN (14:56)
[2022-04-11] MEDS ORDERED: LORazepam 1 MG TABLET PO PRN (14:56)
[2022-04-11] MEDS ORDERED: BISMUTH SUBSALICYLATE 524 MG/30 ML PO PRN (14:56)
[2022-04-11] MEDS: LORazepam 2 MG TABLET PO SCH ×2 (17:34→22:37)
[2022-04-11] MEDS: METHOCARBAMOL 500 MG TABLET PO PRN (17:36)
[2022-04-11] MEDS: MELATONIN 5 MG TABLETS PO SCH (22:37)
[2022-04-11] MEDS: THIAMINE HCL 100 MG TABLET (FP) PO SCH (22:37)
[2022-04-11] MEDS: IBUPROFEN 600 MG TABLET (FP) PO PRN (22:38)
[2022-04-12] MEDS: LORazepam 2 MG TABLET PO SCH ×4 (06:50→22:47)
[2022-04-12] MEDS: PRENATAL VITAMINS W/ FOLIC ACID TABLET (FP) PO SCH (10:51)
[2022-04-12] MEDS: DICYCLOMINE HCL 10 MG CAPSULE PO PRN ×2 (10:56→17:45)
[2022-04-12] MEDS: IBUPROFEN 600 MG TABLET (FP) PO PRN (10:56)
[2022-04-12] MEDS: METHOCARBAMOL 500 MG TABLET PO PRN (10:56)
[2022-04-12 12:40] LABS: HEMATOCRIT 38.4 % (32.4-45.2); HEMOGLOBIN 12.9 GM/dL (10.7-15.3); MCHC 33.6 g/dl (32.0-36.0); MEAN CELL VOLUME 95.2 fl (80-96); MEAN PLT VOLUME 7.6 fl (7.5-11.1); PLATELET COUNT 177 10^3/uL (134-434); RBC 4.03 M/mm3 (3.60-5.2); RDW 15.6 % (11.6-15.6); WHITE BLOOD COUNT 5.4 K/mm3 (4.0-10.0)
[2022-04-12 13:14] LABS: CALCIUM 9.2 mg/dL (8.5-10.1)
[2022-04-12 13:15] LABS: ALBUMIN 3.5 g/dl (3.4-5.0); BLOOD UREA NITROGEN 13.2 mg/dL (7-18)
[2022-04-12 13:18] LABS: CREATININE 0.9 mg/dL (0.55-1.3)
[2022-04-12 13:20] LABS: BILIRUBIN,TOTAL 0.6 mg/dL (0.2-1); TOT PROT 6.5 g/dl (6.4-8.2)
[2022-04-12] MEDS: THIAMINE HCL 100 MG TABLET (FP) PO SCH (22:47)
[2022-04-12] MEDS: MELATONIN 5 MG TABLETS PO SCH (22:47)
[2022-04-13] MEDS: LORazepam 1 MG TABLET PO SCH ×2 (06:14→10:41)
[2022-04-13 09:10] VITALS: BP 119/70; PULSE 102; RESP 20; TEMP 97.2
[2022-04-13] MEDS: PRENATAL VITAMINS W/ FOLIC ACID TABLET (FP) PO SCH (10:40)
[2022-04-14] MEDS ORDERED: LORazepam 0.5 MG TABLET PO PRN
[2022-04-14] MEDS ORDERED: LORazepam 0.5 MG TABLET PO SCH (05:00)
[2022-04-15] MEDS ORDERED: LORazepam 0.5 MG TABLET PO ONE (05:00)
== END 2022-04-13 12:10 | disposition left against medical advice (07) | DRG 894 ==
LOC: YASAS 12:50 → Y6N 15:10
PROVIDERS: ADMIT Allergy & Immunology; ATTEND Surgery
PROC: HZ2ZZZZ Detoxification Services for Substance Abuse Treatment (ICD-10-PCS; principal; 2022-04-11)
DX: F10.230 Alcohol dependence with withdrawal, uncomplicated (principal); F14.20 Cocaine dependence, uncomplicated; F17.210 Nicotine dependence, cigarettes, uncomplicated; I10 Essential (primary) hypertension; J44.9 Chronic obstructive pulmonary disease, unspecified; K70.30 Alcoholic cirrhosis of liver without ascites; M17.12 Unilateral primary osteoarthritis, left knee; Z96.642 Presence of left artificial hip joint; Z86.19 Personal history of other infectious and parasitic diseases; Z87.19 Personal history of other diseases of the digestive system; Z86.718 Personal history of other venous thrombosis and embolism; Z99.89 Dependence on other enabling machines and devices
CPT/HCPCS: 36415; 80053; 85027; 86780; C9803-CS; U0003; U0005

== ENCOUNTER 2022-05-07 15:00 | Inpatient (IN) | payer OTHER ==
[2022-05-07 18:14] VITALS: BMI 18.8
[2022-05-07] MEDS ORDERED: hydrOXYzine PAMOATE 25 MG CAPSULE (FP) PO PRN (19:47)
[2022-05-07] MEDS ORDERED: METHOCARBAMOL 500 MG TABLET PO PRN (19:47)
[2022-05-07] MEDS ORDERED: DICYCLOMINE HCL 10 MG CAPSULE PO PRN (19:47)
[2022-05-07] MEDS ORDERED: MAG HYDROX/AL HYDROX/SIMETH 30 ML UNIT-DOSE CUP PO PRN (19:47)
[2022-05-07] MEDS ORDERED: NALOXONE HCL (KLOXXADO) 8 MG SPRAY NS PRN (19:47)
[2022-05-07] MEDS ORDERED: MAGNESIUM HYDROX 2400MG/30ML ORAL SUSPENSION 30 ML CUP PO PRN (19:47)
[2022-05-07] MEDS ORDERED: IBUPROFEN 400 MG TABLET (FP) PO PRN (19:47)
[2022-05-07] MEDS ORDERED: POLYETHYLENE GLYCOL (HEALTHYLAX) 3350 17 GM PACKET PO PRN (19:47)
[2022-05-07] MEDS ORDERED: BISMUTH SUBSALICYLATE 524 MG/30 ML PO PRN (19:47)
[2022-05-07] MEDS ORDERED: ACETAMINOPHEN 325 MG TABLET (FP) PO PRN ×2 (19:47)
[2022-05-07] MEDS ORDERED: LOPERAMIDE HCL 2 MG CAPSULE PO PRN (19:47)
[2022-05-07] MEDS ORDERED: BENZOCAINE/MENTHOL (CHLORASEPTIC ) LOZENGE MM PRN (19:47)
[2022-05-07] MEDS ORDERED: ONDANSETRON *ODT* 4 MG TABLET SL PRN (19:47)
[2022-05-07] MEDS ORDERED: IBUPROFEN 600 MG TABLET (FP) PO ONE (20:10)
[2022-05-07] MEDS: IBUPROFEN 600 MG TABLET (FP) PO PRN (20:11)
[2022-05-07] MEDS: MELATONIN 5 MG TABLETS PO SCH (21:24)
[2022-05-07] MEDS: THIAMINE HCL 100 MG TABLET (FP) PO SCH (21:24)
[2022-05-07] MEDS: NICOTINE 10 MG CARTRIDGE (INHALER) IH PRN (21:24)
[2022-05-08] MEDS: NICOTINE 10 MG CARTRIDGE (INHALER) IH PRN (08:42)
[2022-05-08] MEDS ORDERED: ALBUTEROL SO4 HFA INHALER IH PRN (09:18)
[2022-05-08] MEDS ORDERED: PREGABALIN 25 MG CAPSULE PO SCH (10:00)
[2022-05-08] MEDS: PRENATAL VITAMINS W/ FOLIC ACID TABLET (FP) PO SCH (10:56)
[2022-05-08] MEDS: PANTOPRAZOLE 40 MG TABLET PO SCH (10:57)
[2022-05-08] MEDS: NICOTINE 7 MG/24 HOURS TOPICAL PATCH TD SCH (10:57)
[2022-05-08 11:47] LABS: HEMATOCRIT 32.4 % (32.4-45.2); HEMOGLOBIN 10.4 GM/dL (10.7-15.3); MCH 31.3 pg (25.7-33.7); MCHC 32.2 g/dl (32.0-36.0); MEAN CELL VOLUME 97.1 fl (80-96); PLATELET COUNT 134 10^3/uL (134-434); RBC 3.34 M/mm3 (3.60-5.2); RDW 16.8 % (11.6-15.6); WHITE BLOOD COUNT 4.1 K/mm3 (4.0-10.0)
[2022-05-08 12:27] LABS: ALBUMIN 3.1 g/dl (3.4-5.0)
[2022-05-08 12:33] LABS: BILIRUBIN,TOTAL 0.5 mg/dL (0.2-1)
[2022-05-08 12:37] LABS: TOT PROT 6.2 g/dl (6.4-8.2)
[2022-05-08 12:41] LABS: BLOOD UREA NITROGEN 11.5 mg/dL (7-18); CALCIUM 8.9 mg/dL (8.5-10.1); CREATININE 0.9 mg/dL (0.55-1.3)
[2022-05-08] MEDS: GABAPENTIN 100 MG CAPSULE PO SCH ×2 (12:55→19:48)
[2022-05-08] MEDS: LIPASE/PROTEASE/AMYLASE 36,000 UNIT CAPSULE PO SCH ×2 (12:55→17:55)
[2022-05-08] MEDS: IBUPROFEN 600 MG TABLET (FP) PO PRN (16:05)
[2022-05-08] MEDS: THIAMINE HCL 100 MG TABLET (FP) PO SCH (22:25)
[2022-05-08] MEDS: MELATONIN 5 MG TABLETS PO SCH (22:25)
[2022-05-09] MEDS: GABAPENTIN 100 MG CAPSULE PO SCH ×2 (05:58→13:38)
[2022-05-09] MEDS: LIPASE/PROTEASE/AMYLASE 36,000 UNIT CAPSULE PO SCH ×3 (07:35→18:16)
[2022-05-09] MEDS: PRENATAL VITAMINS W/ FOLIC ACID TABLET (FP) PO SCH (11:07)
[2022-05-09] MEDS: PANTOPRAZOLE 40 MG TABLET PO SCH (11:07)
[2022-05-09] MEDS: NICOTINE 7 MG/24 HOURS TOPICAL PATCH TD SCH (11:08)
[2022-05-09 22:27] VITALS: BP 144/72; PULSE 72; RESP 18; TEMP 97.1
== END 2022-05-09 23:01 | disposition other institution (70) | DRG 897 ==
LOC: YASAS 15:00 → Y3N 20:44
PROVIDERS: ADMIT Allergy & Immunology; ATTEND Surgery
PROC: HZ2ZZZZ Detoxification Services for Substance Abuse Treatment (ICD-10-PCS; principal; 2022-05-07)
DX: F10.230 Alcohol dependence with withdrawal, uncomplicated (principal); F14.20 Cocaine dependence, uncomplicated; K86.0 Alcohol-induced chronic pancreatitis; F17.210 Nicotine dependence, cigarettes, uncomplicated; I10 Essential (primary) hypertension; J44.9 Chronic obstructive pulmonary disease, unspecified; K21.9 Gastro-esophageal reflux disease without esophagitis; K70.30 Alcoholic cirrhosis of liver without ascites; Z86.718 Personal history of other venous thrombosis and embolism; Z86.19 Personal history of other infectious and parasitic diseases; Z88.0 Allergy status to penicillin
CPT/HCPCS: 36415; 80053; 85027; 86780; 87811; C9803-CS; U0003; U0005

== ENCOUNTER 2022-05-09 21:53 | Inpatient (IN) | payer OTHER ==
[2022-05-09] MEDS ORDERED: P-EPHED 60MG/TRIPROLIDI 2.5MG TABLET PO PRN (23:44)
[2022-05-09] MEDS ORDERED: LOPERAMIDE HCL 2 MG CAPSULE PO PRN (23:44)
[2022-05-09] MEDS ORDERED: POLYETHYLENE GLYCOL (HEALTHYLAX) 3350 17 GM PACKET PO PRN (23:44)
[2022-05-09] MEDS ORDERED: MAGNESIUM HYDROX 2400MG/30ML ORAL SUSPENSION 30 ML CUP PO PRN (23:44)
[2022-05-09] MEDS ORDERED: guaiFENesin 200 MG/10 ML 10 ML UNIT-DOSE CUPS PO PRN (23:44)
[2022-05-09] MEDS ORDERED: BENZOCAINE/MENTHOL (CHLORASEPTIC ) LOZENGE MM PRN (23:44)
[2022-05-09] MEDS ORDERED: ALBUTEROL SO4 HFA INHALER IH PRN (23:46)
[2022-05-10] MEDS: GABAPENTIN 100 MG CAPSULE PO SCH ×4 (00:15→21:10)
[2022-05-10] MEDS: MELATONIN 5 MG TABLETS PO SCH ×2 (00:15→21:10)
[2022-05-10] MEDS ORDERED: LIPASE/PROTEASE/AMYLASE 36,000 UNIT CAPSULE PO SCH (06:00)
[2022-05-10] MEDS: IBUPROFEN 400 MG TABLET (FP) PO PRN (06:45)
[2022-05-10] MEDS: MAG HYDROX/AL HYDROX/SIMETH 30 ML UNIT-DOSE CUP PO PRN (06:47)
[2022-05-10] MEDS: LIPASE/PROTEASE/AMYLASE 6,000 UNIT CAPSULE PO SCH ×3 (08:08→19:02)
[2022-05-10] MEDS: PRENATAL VITAMINS W/ FOLIC ACID TABLET (FP) PO SCH (11:02)
[2022-05-10] MEDS ORDERED: TUBERCULIN PPD 5 TU/0.1ML VIAL ID ONE (11:04)
[2022-05-10] MEDS: THIAMINE HCL 100 MG TABLET (FP) PO SCH (21:09)
[2022-05-10] MEDS: NICOTINE 10 MG CARTRIDGE (INHALER) IH PRN (21:13)
[2022-05-11] MEDS: GABAPENTIN 100 MG CAPSULE PO SCH ×3 (06:43→21:12)
[2022-05-11] MEDS: LIPASE/PROTEASE/AMYLASE 6,000 UNIT CAPSULE PO SCH ×3 (07:09→17:25)
[2022-05-11] MEDS: PRENATAL VITAMINS W/ FOLIC ACID TABLET (FP) PO SCH (10:59)
[2022-05-11] MEDS: amLODIPine BESYLATE 10 MG TABLET (FP) PO SCH (11:00)
[2022-05-11] MEDS: NICOTINE 10 MG CARTRIDGE (INHALER) IH PRN (17:52)
[2022-05-11] MEDS: THIAMINE HCL 100 MG TABLET (FP) PO SCH (21:12)
[2022-05-11] MEDS: MELATONIN 5 MG TABLETS PO SCH (21:12)
[2022-05-11] MEDS: ACETAMINOPHEN 325 MG TABLET (FP) PO PRN (21:12)
[2022-05-12] MEDS: GABAPENTIN 100 MG CAPSULE PO SCH ×3 (07:00→21:07)
[2022-05-12] MEDS: LIPASE/PROTEASE/AMYLASE 6,000 UNIT CAPSULE PO SCH ×3 (07:34→17:39)
[2022-05-12] MEDS: PRENATAL VITAMINS W/ FOLIC ACID TABLET (FP) PO SCH (10:40)
[2022-05-12] MEDS: NIFEdipine E.R 60 MG TABLET PO SCH (10:41)
[2022-05-12] MEDS: THIAMINE HCL 100 MG TABLET (FP) PO SCH (21:07)
[2022-05-12] MEDS: MELATONIN 5 MG TABLETS PO SCH (21:08)
[2022-05-12] MEDS: ACETAMINOPHEN 325 MG TABLET (FP) PO PRN (21:09)
[2022-05-13] MEDS: GABAPENTIN 100 MG CAPSULE PO SCH ×3 (06:23→21:45)
[2022-05-13] MEDS: LIPASE/PROTEASE/AMYLASE 6,000 UNIT CAPSULE PO SCH ×2 (07:51→12:01)
[2022-05-13] MEDS: PRENATAL VITAMINS W/ FOLIC ACID TABLET (FP) PO SCH (10:29)
[2022-05-13] MEDS: NIFEdipine E.R 60 MG TABLET PO SCH (10:30)
[2022-05-13] MEDS: ACETAMINOPHEN 325 MG TABLET (FP) PO PRN (10:33)
[2022-05-13] MEDS: METHYL SALICYLATE/MENTHOL OINT 30 GM TUBE TP SCH ×2 (12:02→21:45)
[2022-05-13] MEDS: LIPASE/PROTEASE/AMYLASE 36,000 UNIT CAPSULE PO SCH (16:51)
[2022-05-13] MEDS: MELATONIN 5 MG TABLETS PO SCH (21:45)
[2022-05-13] MEDS: THIAMINE HCL 100 MG TABLET (FP) PO SCH (21:45)
[2022-05-14] MEDS: GABAPENTIN 100 MG CAPSULE PO SCH ×3 (07:02→21:14)
[2022-05-14] MEDS: ACETAMINOPHEN 325 MG TABLET (FP) PO PRN (07:03)
[2022-05-14] MEDS: LIPASE/PROTEASE/AMYLASE 36,000 UNIT CAPSULE PO SCH ×3 (07:42→17:30)
[2022-05-14] MEDS: PRENATAL VITAMINS W/ FOLIC ACID TABLET (FP) PO SCH (10:47)
[2022-05-14] MEDS: NIFEdipine E.R 60 MG TABLET PO SCH (10:47)
[2022-05-14] MEDS: amLODIPine BESYLATE 10 MG TABLET (FP) PO SCH (10:48)
[2022-05-14] MEDS: METHYL SALICYLATE/MENTHOL OINT 30 GM TUBE TP SCH ×2 (10:49→21:15)
[2022-05-14] MEDS: hydrOXYzine PAMOATE 25 MG CAPSULE (FP) PO PRN (14:18)
[2022-05-14] MEDS: MELATONIN 5 MG TABLETS PO SCH (21:14)
[2022-05-14] MEDS: THIAMINE HCL 100 MG TABLET (FP) PO SCH (21:14)
[2022-05-15] MEDS: GABAPENTIN 100 MG CAPSULE PO SCH (06:59)
[2022-05-15] MEDS: LIPASE/PROTEASE/AMYLASE 36,000 UNIT CAPSULE PO SCH ×3 (07:09→17:21)
[2022-05-15] MEDS: PRENATAL VITAMINS W/ FOLIC ACID TABLET (FP) PO SCH (10:46)
[2022-05-15] MEDS: amLODIPine BESYLATE 10 MG TABLET (FP) PO SCH (10:47)
[2022-05-15] MEDS: NIFEdipine E.R 60 MG TABLET PO SCH (10:47)
[2022-05-15] MEDS: METHYL SALICYLATE/MENTHOL OINT 30 GM TUBE TP SCH ×2 (10:48→23:52)
[2022-05-15] MEDS: ACETAMINOPHEN 325 MG TABLET (FP) PO PRN (17:22)
[2022-05-15] MEDS: MELATONIN 5 MG TABLETS PO SCH (22:19)
[2022-05-15] MEDS: THIAMINE HCL 100 MG TABLET (FP) PO SCH (22:19)
[2022-05-15] MEDS: hydrOXYzine PAMOATE 25 MG CAPSULE (FP) PO PRN (22:20)
[2022-05-16] MEDS: ACETAMINOPHEN 325 MG TABLET (FP) PO PRN (07:00)
[2022-05-16] MEDS: LIPASE/PROTEASE/AMYLASE 36,000 UNIT CAPSULE PO SCH ×3 (07:02→17:29)
[2022-05-16] MEDS: PRENATAL VITAMINS W/ FOLIC ACID TABLET (FP) PO SCH (10:59)
[2022-05-16] MEDS: amLODIPine BESYLATE 10 MG TABLET (FP) PO SCH (10:59)
[2022-05-16] MEDS: NIFEdipine E.R 60 MG TABLET PO SCH (10:59)
[2022-05-16] MEDS: METHYL SALICYLATE/MENTHOL OINT 30 GM TUBE TP SCH ×2 (11:00→21:25)
[2022-05-16] MEDS: IBUPROFEN 400 MG TABLET (FP) PO PRN (17:21)
[2022-05-16] MEDS: THIAMINE HCL 100 MG TABLET (FP) PO SCH (21:24)
[2022-05-16] MEDS: MELATONIN 5 MG TABLETS PO SCH (21:24)
[2022-05-16] MEDS: hydrOXYzine PAMOATE 25 MG CAPSULE (FP) PO PRN (21:25)
[2022-05-17] MEDS: LIPASE/PROTEASE/AMYLASE 36,000 UNIT CAPSULE PO SCH ×3 (07:50→17:58)
[2022-05-17] MEDS: METHYL SALICYLATE/MENTHOL OINT 30 GM TUBE TP SCH ×2 (09:59→21:35)
[2022-05-17] MEDS: amLODIPine BESYLATE 10 MG TABLET (FP) PO SCH (10:02)
[2022-05-17] MEDS: PRENATAL VITAMINS W/ FOLIC ACID TABLET (FP) PO SCH (10:02)
[2022-05-17] MEDS: NIFEdipine E.R 60 MG TABLET PO SCH (10:02)
[2022-05-17] MEDS: IBUPROFEN 400 MG TABLET (FP) PO PRN (14:55)
[2022-05-17] MEDS: MELATONIN 5 MG TABLETS PO SCH (21:35)
[2022-05-17] MEDS: THIAMINE HCL 100 MG TABLET (FP) PO SCH (21:35)
[2022-05-18] MEDS: IBUPROFEN 400 MG TABLET (FP) PO PRN ×2 (00:48→10:39)
[2022-05-18] MEDS: LIPASE/PROTEASE/AMYLASE 36,000 UNIT CAPSULE PO SCH ×3 (07:38→17:42)
[2022-05-18] MEDS: METHYL SALICYLATE/MENTHOL OINT 30 GM TUBE TP SCH ×2 (10:37→21:53)
[2022-05-18] MEDS: PRENATAL VITAMINS W/ FOLIC ACID TABLET (FP) PO SCH (10:38)
[2022-05-18] MEDS: amLODIPine BESYLATE 10 MG TABLET (FP) PO SCH (10:38)
[2022-05-18] MEDS: NIFEdipine E.R 60 MG TABLET PO SCH (10:38)
[2022-05-18] MEDS: THIAMINE HCL 100 MG TABLET (FP) PO SCH (21:53)
[2022-05-18] MEDS: MELATONIN 5 MG TABLETS PO SCH (21:53)
[2022-05-18] MEDS: ACETAMINOPHEN 325 MG TABLET (FP) PO PRN (21:54)
[2022-05-19] MEDS: LIPASE/PROTEASE/AMYLASE 36,000 UNIT CAPSULE PO SCH ×3 (07:42→17:13)
[2022-05-19] MEDS: ACETAMINOPHEN 325 MG TABLET (FP) PO PRN (07:42)
[2022-05-19] MEDS: PRENATAL VITAMINS W/ FOLIC ACID TABLET (FP) PO SCH (11:01)
[2022-05-19] MEDS: NIFEdipine E.R 60 MG TABLET PO SCH (11:02)
[2022-05-19] MEDS: amLODIPine BESYLATE 10 MG TABLET (FP) PO SCH (11:02)
[2022-05-19] MEDS: METHYL SALICYLATE/MENTHOL OINT 30 GM TUBE TP SCH ×2 (11:03→21:28)
[2022-05-19] MEDS: IBUPROFEN 400 MG TABLET (FP) PO PRN (19:45)
[2022-05-19] MEDS: MELATONIN 5 MG TABLETS PO SCH (21:28)
[2022-05-19] MEDS: hydrOXYzine PAMOATE 25 MG CAPSULE (FP) PO PRN (21:28)
[2022-05-19] MEDS: THIAMINE HCL 100 MG TABLET (FP) PO SCH (21:28)
[2022-05-20] MEDS: ACETAMINOPHEN 325 MG TABLET (FP) PO PRN (06:28)
[2022-05-20] MEDS: LIPASE/PROTEASE/AMYLASE 36,000 UNIT CAPSULE PO SCH ×3 (07:25→16:44)
[2022-05-20] MEDS: PRENATAL VITAMINS W/ FOLIC ACID TABLET (FP) PO SCH (10:41)
[2022-05-20] MEDS: METHYL SALICYLATE/MENTHOL OINT 30 GM TUBE TP SCH ×2 (10:42→21:15)
[2022-05-20] MEDS: amLODIPine BESYLATE 10 MG TABLET (FP) PO SCH (10:42)
[2022-05-20] MEDS: NIFEdipine E.R 60 MG TABLET PO SCH (10:42)
[2022-05-20] MEDS: IBUPROFEN 400 MG TABLET (FP) PO PRN (16:43)
[2022-05-20] MEDS: MELATONIN 5 MG TABLETS PO SCH (21:15)
[2022-05-20] MEDS: THIAMINE HCL 100 MG TABLET (FP) PO SCH (21:15)
[2022-05-20] MEDS: hydrOXYzine PAMOATE 25 MG CAPSULE (FP) PO PRN (21:16)
[2022-05-21] MEDS: IBUPROFEN 400 MG TABLET (FP) PO PRN (07:04)
[2022-05-21] MEDS: LIPASE/PROTEASE/AMYLASE 36,000 UNIT CAPSULE PO SCH ×3 (07:04→16:55)
[2022-05-21] MEDS: PRENATAL VITAMINS W/ FOLIC ACID TABLET (FP) PO SCH (10:38)
[2022-05-21] MEDS: METHYL SALICYLATE/MENTHOL OINT 30 GM TUBE TP SCH ×2 (10:39→21:23)
[2022-05-21] MEDS: amLODIPine BESYLATE 10 MG TABLET (FP) PO SCH (10:40)
[2022-05-21] MEDS: NIFEdipine E.R 60 MG TABLET PO SCH (10:40)
[2022-05-21] MEDS: ACETAMINOPHEN 325 MG TABLET (FP) PO PRN (16:54)
[2022-05-21] MEDS: THIAMINE HCL 100 MG TABLET (FP) PO SCH (21:23)
[2022-05-21] MEDS: hydrOXYzine PAMOATE 25 MG CAPSULE (FP) PO PRN (21:23)
[2022-05-21] MEDS: MELATONIN 5 MG TABLETS PO SCH (21:23)
[2022-05-22] MEDS: LIPASE/PROTEASE/AMYLASE 36,000 UNIT CAPSULE PO SCH ×3 (07:45→17:26)
[2022-05-22] MEDS: METHYL SALICYLATE/MENTHOL OINT 30 GM TUBE TP SCH ×2 (10:09→21:21)
[2022-05-22] MEDS: NIFEdipine E.R 60 MG TABLET PO SCH (10:10)
[2022-05-22] MEDS: amLODIPine BESYLATE 10 MG TABLET (FP) PO SCH (10:10)
[2022-05-22] MEDS: PRENATAL VITAMINS W/ FOLIC ACID TABLET (FP) PO SCH (10:10)
[2022-05-22] MEDS: IBUPROFEN 400 MG TABLET (FP) PO PRN ×2 (10:11→21:23)
[2022-05-22] MEDS: hydrOXYzine PAMOATE 25 MG CAPSULE (FP) PO PRN ×2 (11:20→17:34)
[2022-05-22] MEDS: THIAMINE HCL 100 MG TABLET (FP) PO SCH (21:23)
[2022-05-22] MEDS: MELATONIN 5 MG TABLETS PO SCH (21:25)
[2022-05-23] MEDS: IBUPROFEN 400 MG TABLET (FP) PO PRN ×2 (06:54→16:28)
[2022-05-23] MEDS: MAG HYDROX/AL HYDROX/SIMETH 30 ML UNIT-DOSE CUP PO PRN (06:55)
[2022-05-23 07:20] VITALS: RESP 18
[2022-05-23] MEDS: LIPASE/PROTEASE/AMYLASE 36,000 UNIT CAPSULE PO SCH ×3 (07:59→18:40)
[2022-05-23] MEDS: hydrOXYzine PAMOATE 25 MG CAPSULE (FP) PO PRN (09:52)
[2022-05-23] MEDS: PRENATAL VITAMINS W/ FOLIC ACID TABLET (FP) PO SCH (09:52)
[2022-05-23] MEDS: amLODIPine BESYLATE 10 MG TABLET (FP) PO SCH (09:52)
[2022-05-23] MEDS: NIFEdipine E.R 60 MG TABLET PO SCH (09:52)
[2022-05-23] MEDS: METHYL SALICYLATE/MENTHOL OINT 30 GM TUBE TP SCH ×2 (09:53→21:37)
[2022-05-23] MEDS: MELATONIN 5 MG TABLETS PO SCH (21:37)
[2022-05-23] MEDS: THIAMINE HCL 100 MG TABLET (FP) PO SCH (21:38)
[2022-05-23] MEDS: ACETAMINOPHEN 325 MG TABLET (FP) PO PRN (21:39)
[2022-05-24] MEDS: LIPASE/PROTEASE/AMYLASE 36,000 UNIT CAPSULE PO SCH ×3 (07:48→17:48)
[2022-05-24 08:04] VITALS: TEMP 98.3
[2022-05-24] MEDS: NIFEdipine E.R 60 MG TABLET PO SCH (10:27)
[2022-05-24] MEDS: amLODIPine BESYLATE 10 MG TABLET (FP) PO SCH (10:27)
[2022-05-24] MEDS: PRENATAL VITAMINS W/ FOLIC ACID TABLET (FP) PO SCH (10:27)
[2022-05-24] MEDS: METHYL SALICYLATE/MENTHOL OINT 30 GM TUBE TP SCH ×2 (10:28→21:28)
[2022-05-24] MEDS: MAG HYDROX/AL HYDROX/SIMETH 30 ML UNIT-DOSE CUP PO PRN (10:29)
[2022-05-24] MEDS ORDERED: CYANOCOBALAMIN (VITAMIN B-12) 1000 MCG/1 ML VIAL IM ONE (12:02)
[2022-05-24 15:22] LABS: EPI CELLS >36 /uL (0-25.1); HYALINE CASTS 2 /uL (0-3.1); PH,URINE 5.5 (5.0-8.0); URINE APPEARANCE CLOUDY; URINE BACTERIA 105 /uL (0-1359); URINE BILIRUBIN NEGATIVE (NEGATIVE); URINE COLOR YELLOW; URINE GLUCOSE (UA) NEGATIVE (NEGATIVE); URINE KETONE NEGATIVE (NEGATIVE); URINE LEUK ESTERASE 2+ (NEGATIVE); URINE NITRITE NEGATIVE (NEGATIVE); URINE PROTEIN TRACE (NEGATIVE); URINE RBC 11 /uL (0-23.9); URINE UROBILINOGEN 0.2 mg/dL (0.2-1.0); URINE WBC 254 /uL (0-25.8)
[2022-05-24] MEDS: IBUPROFEN 400 MG TABLET (FP) PO PRN ×2 (15:25→21:28)
[2022-05-24] MEDS: hydrOXYzine PAMOATE 25 MG CAPSULE (FP) PO PRN (15:26)
[2022-05-24] MEDS: THIAMINE HCL 100 MG TABLET (FP) PO SCH (21:28)
[2022-05-24] MEDS: MELATONIN 5 MG TABLETS PO SCH (21:28)
[2022-05-25] MEDS: MAG HYDROX/AL HYDROX/SIMETH 30 ML UNIT-DOSE CUP PO PRN (02:49)
[2022-05-25] MEDS: IBUPROFEN 400 MG TABLET (FP) PO PRN (06:31)
[2022-05-25 07:00] VITALS: BP 131/75; PULSE 81
[2022-05-25] MEDS: LIPASE/PROTEASE/AMYLASE 36,000 UNIT CAPSULE PO SCH (07:46)
[2022-05-25] MEDS: amLODIPine BESYLATE 10 MG TABLET (FP) PO SCH (09:59)
[2022-05-25] MEDS: NIFEdipine E.R 60 MG TABLET PO SCH (09:59)
[2022-05-25] MEDS: METHYL SALICYLATE/MENTHOL OINT 30 GM TUBE TP SCH (09:59)
[2022-05-25] MEDS: PRENATAL VITAMINS W/ FOLIC ACID TABLET (FP) PO SCH (09:59)
== END 2022-05-25 11:00 | disposition home or self-care (01) | DRG 895 ==
LOC: YASAS 21:53 → Y5N 21:56
PROVIDERS: ADMIT Allergy & Immunology; ATTEND Allergy & Immunology
PROC: HZ42ZZZ Group Counseling for Substance Abuse Treatment, Cognitive-Behavioral (ICD-10-PCS; principal; 2022-05-09)
DX: F10.20 Alcohol dependence, uncomplicated (principal); F14.20 Cocaine dependence, uncomplicated; K86.0 Alcohol-induced chronic pancreatitis; F17.210 Nicotine dependence, cigarettes, uncomplicated; F19.24 Other psychoactive substance dependence with psychoactive substance-induced mood disorder; D50.9 Iron deficiency anemia, unspecified; I10 Essential (primary) hypertension; J44.9 Chronic obstructive pulmonary disease, unspecified; K21.9 Gastro-esophageal reflux disease without esophagitis; K70.30 Alcoholic cirrhosis of liver without ascites; M17.12 Unilateral primary osteoarthritis, left knee; R60.0 Localized edema; Z96.642 Presence of left artificial hip joint; Z99.89 Dependence on other enabling machines and devices; Z86.19 Personal history of other infectious and parasitic diseases; Z86.718 Personal history of other venous thrombosis and embolism
CPT/HCPCS: 81003